=== PATIENT | female | born 1975 | race Caucasian/White ===

== ENCOUNTER 2023-04-08 09:31 | Outpatient (OUT) | payer OTHER, SELFPAY ==
[2023-04-08 09:46] LABS: Bilirubin Urine NEGATIVE (NEGATIVE); Blood Urine SMALL (NEGATIVE); Color Urine YELLOW (YELLOW); Glucose Urine UA NEGATIVE (NEGATIVE); Ketones Urine NEGATIVE (NEGATIVE); Leukocyte Esterase Urine NEGATIVE (NEGATIVE); Nitrite Urine NEGATIVE (NEGATIVE); Protein Urine NEGATIVE (NEG/TRACE); Specific Gravity Urine 1.015 (1.005-1.025); Urine Microscopic Indicated YES
[2023-04-08 09:54] LABS: Clarity Urine SLIGHTLY CLOUDY (CLEAR); WBC Urine NONE SEEN #/HPF (NONE SEEN)
[2023-04-08 09:55] LABS: Bacteria Urine NONE SEEN #/HPF (NONE SEEN); Cast Seen? NONE SEEN #/LPF (NONE SEEN); Crystals Seen? None Seen #/HPF (None Seen); Mucus Urine NONE SEEN (NONE SEEN); RBC Urine 0-2 #/HPF (0-2); Squamous Epithelial Cell Urine MANY #/LPF (NONE/RARE)
== END 2023-04-08 09:32 | disposition home or self-care (01) ==
LOC: LAB 09:34
PROVIDERS: PCP Nurse Practitioner; Visit Provider Nurse Practitioner
DX: N30.00 Acute cystitis without hematuria (principal)
CPT/HCPCS: 81001; 87086

== ENCOUNTER 2023-05-05 11:33 | Emergency (ER) | payer OTHER, SELFPAY ==
[2023-05-05] VITALS (15 sets, daily range): BP systolic 120–137; BP diastolic 75–84; PULSE 72–95; RESP 12–27; TEMP 36.9; O2SAT 97–99; BMI 24.1
--- OUTSIDE RECORDS SUMMARY | 2023-05-05 11:44 | XMS_ITS | CCD ---
Author Name Unknown Address [address] [place] [address] Organization [facility] Care Team Providers Care Hearing Aid Consultant Name Role Phone MAGO ULLOA BRAXTON Admitting Unavailable TROYHTANIYA, MAGO LIMON Attending Unavailable MISC, DR WYATT Primary Care Unavailable AICHTANIYA, MAGO LIMON Consulting Unavailable KARASIK, DR CUELLAR Admitting Unavailable KARASIK, DR CUELLAR Attending Unavailable MISC, DR WYATT Primary Care Unavailable KARASIK, DR CUELLAR Consulting Unavailable Unavailable Primary Care Provider Unavailabl e PROVIDER, UNKNOWN Attending Unavailable PROVIDER, UNKNOWN Admitting Unavailable RADHA MONTAGUE Referring Unava ilable Maribell Knutson Unavailable EVELIO Knutson Attending Provider Maribell Knutson Attending Unavailable Maribell Knutson Admitting Unavailable Ermelinda Morrison Unavailable BRAXTON ULLOA Attending Unavailable Medications Current Medications Medication Drug Class(es) Dates Sig (Normalized) Sig (Original) cephalexin 500 mg oral tablet (2 sources) Cephalosporin Antibacterial Start: 03-29-2023 take 1 tablet by mouth every twelve hours Cephalexin 500 MG 1 tablet Orally every 12 hrs for 7 days Mar, Active nitrofurantoin, macrocrystals 25 mg / nitrofurantoin, monohydrate 75 mg oral capsule (3 sources) Nitrofuran Antibacterial Start: 03-23-2023 take 1 capsule by mouth every twelve hours Macrobid 100 MG 1 cap(s) Orally bid for 5 day(s) Mar, Active phenazopyridine hydrochloride 200 mg oral tablet (3 sources) Start: 03-23-2023 take 1 tablet by mouth every eight hours Pyridium 200 MG 1 tablet after meals Orally Three times a day for 2 day(s) Mar, Active Problems Problem Classification Problem Date Documented Date Episodic/Chronic Genitourinary symptoms and ill-defined conditions (3 sources) Dysuria; Translations: [Dysuria] Onset: 03-23-2023 Episodic Immunizations and screening for infectious disease (1 source) Encounter for screening for human papillomavirus (HPV); Translations: [ENC SCREENING HUMAN PAPILLOMAVIRUS] Onset: 09-19-2021 Episodic Other screening for suspected conditions (not mental disorders or infectious disease) (6 sources) Encounter for screening for malignant neoplasm of cervix; Translations: [Abnormal findings on diagnostic imaging of breast] Onset: 09-16-2021 Episodic Urinary tract infections (2 sources) Acute cystitis with hematuria Episodic Results Test Name Value Interpretation Reference Range Facility Urinalysis - AUTOMATEDon Appearance (U) cloudy [facility] Other Bilirubin Ql (U) Negative [employer] Other Color (U) yellow [employer] Other Glucose Ql (U) Negative [facility] Other Hemoglobin Ql (U) moderate [facility] Other Ketones Ql (U) Negative [facility] Other Leukocyte esterase Test strip Ql (U) trace [employer] Other Nitrite Ql (U) Negative [facility] Other pH (U) 5.5 [pH] [employer] Other Protein Ql (U) 30 [facility] Other Specific gravity (U) [Rel density] >=1.030 [employer] Other Urobilinogen (U) [Mass/Vol] 1.0 mg/dL [employer] Other Urinalysis - AUTOMATED [employer] Other Urine Cultureon 03-23-2023 Bacteria identified Cx Nom (U) ORGANISM: Escherichia coli (O:ESCCOL) Fischer Count 75,000 Aerobic BAMBI Charge (NMIC56) ---- SUSCEPTIBILITY --- ORGANISM: O:ESCCOL ANTIBIOTIC INTERPRETATION [facility]AM[facility] Amikacin S <16 Amoxacillin/K Clavulanate S <8 Ampicillin S <8 Ampicillin/Sulbactam S <4 Aztreonam S <4 Cefazolin S <2 Cefepime S <2 Ceftazidime S <1 Ceftazidime/Avibactam S <4 Ceftolozane/Tazobacta m S <2 Ceftriaxone S <1 Cefuroxime S <4 Ciprofloxacin S <0.25 Ertapenem S <0.5 Gentamicin S <2 Levofloxacin S <0.5 Meropenem S <1 Meropenem/Vaborbactam S <2 Nitrofurantoin S <32 Piperacillin/Tazobact am S <8 Tetracycline S <4 Tigecycline S <2 Tobramycin S <2 Trimethoprim/Sulfamet hoxazole S <0.5 S = SUSCEPTIBLE I = INTERMEDIATE R = RESISTANT BLANK = DATA NOT AVAILABLE, OR DRUG NOT ADVISABLE OR TESTED R* = RESISTANCE DUE TO EXTENDED SPECTRUM BETA-LACTAMASES ESBL = EXTENDED SPECTRUM BETA-LACTAMASE TFG = THYMIDINE-DEPENDENT STRAIN KATELIN = BETA-LACTAMASE POSITIVE IB = INDUCIBLE BETA-LACTAMASE. APPEARS IN PLACE OF 'S' WITH SPECIES KNOWN TO POSSESS INDUCIBLE BETA-LACTAMASES. POTENTIALLY THEY MAY BECOME RESISTANT TO ALL B-LACTAM DRUGS. PERFORMED BY: [place] [address] PATHOLOGIST PLATING EQUIPMENT TENDER ABIGAIL CAMPOVERDE M.D. Normal [facility] Comment on above: Performed By: #### C UU #### [address] Urine Culture 75,000 [employer] Other Urine Culture <16 Susceptible [facility] Other Urine Culture <8/4 Susceptible [facility] Other Urine Culture <8 Susceptible [facility] Other Urine Culture <4 Susceptible [facility] Other Urine Culture <2 Susceptible [facility] Other Urine Culture <1 Susceptible [facility] Other Urine Culture <0.25 Susceptible [facility] Other Urine Culture <0.5 Susceptible [facility] Other Urine Culture <32 Susceptible [facility] Other Urine Culture <0.5/9.5 Susceptible [facility] Other MG MAMMO SCREEN BILAT MAXX W /CADon 12-27-2022 MG MAMMO SCREEN BILAT MAXX W/CAD EXAM: BILATERAL SCREENING MAMMOGRAM W/TOMOSYNTHESIS AND CAD CLINICAL HISTORY: Patient is 47 years old and is seen for screening. The patient has a history of ovarian cancer at age 38. The patient has no family history of breast cancer. COMPARISON: This is a baseline study. TECHNIQUE: The following mammographic views were obtained: bilateral CC, CC with tomosynthesis, MLO and MLO with tomosynthesis. Computer-aided detection was utilized by the radiologist in the interpretation of this examination. MAMMOGRAM FINDINGS: The breast tissue is heterogeneously dense, which may obscure detection of small masses. There is a mass in the upper outer quadrant of the right breast at posterior depth. No suspicious masses, calcifications or other abnormalities are seen in the left breast. IMPRESSION: Mass in the right breast requires additional evaluation. A diagnostic right breast ultrasound exam ([id number]) is recommended. There is no evidence of malignancy in the left breast. BI-RADS Category 0: Incomplete, Needs Additional Imaging Evaluation The Breast Center Coordinator and Navigator will place a reflexive Epic order, contact and schedule the appropriate appointments. RISK ASSESSMENT: Estimated lifetime breast cancer risk: High (more than 20%, as per the Tyrer-Cuzick/AMERICA model) NCI Lifetime Risk Score: 6.3% The patient is noted to be of high risk for breast cancer and may be a candidate for high risk screening. A referral to Breast Clinic is recommended. Breast Clinic Referral Code [id number] Normal [facility] Progress Noteson 12-27-2022 Photo Manager Authentication Interface Message Text Breast imaging reviewed by radiologist. Impression/Recommenda tion: Mass in the right breast requires additional evaluation. A diagnostic right breast ultrasound exam ([id number]) is recommended. Orders placed per radiologist recommendations. Patient will be contacted to schedule appropriate appointments. Katt Galindo RN-BC, HEAD ROSE GROWER, PhD Breast Center Gage Designer Normal [facility] PAP ACOG PANEL 2: 30 to 65on 09-22-2021 . . Normal [facility] Comment on above: Result Comment: Perf ormed at: WB Performed By: #### [id number] #### [facility] [address] [address] [address] Adiel Castillo Age Gdln ACOG Testing 30-65 [facility] Comment on above: Performed By: #### [id number] #### [facility] [address] [address] [address] Adiel Castillo DIAGNOSIS: Comment Normal [facility] Comment on above: Result Comment: NEGA TIVE FOR INTRAEPITHELIAL LESION OR MALIGNANCY. Performed at: WB Performed By: #### [id number] #### [facility] [address] [address] [address] Adiel Castillo HPV Aptima Negative Normal Negative [facility] Comment on above: Result Comment: This nucleic acid amplification test detects fourteen high-risk HPV types (16,18,31,33,35,39,45,51,52,56,58,59,66,68) without differentiation. Performed at: =G Performed By: #### [id number] #### [facility] [address] [address] [address] Adiel Castillo Methodology: Comment Normal [facility] Comment on above: Result Comment: This liquid based ThinPrep(R) pap test was screened with the use of an image guided system. Performed at: WB Performed By: #### [id number] #### [facility] [address] [address] [address] Adiel Castillo Note: Comment Normal [facility] Comment on above: Result Comment: The Pap smear is a screening test designed to aid in the detection of premalignant and malignant conditions of the uterine cervix. It is not a diagnostic procedure and should not be used as the sole means of detecting cervical cancer. Both false-positive and false-negative reports do occur. . Performed at: WB Performed By: #### [id number] #### [facility] [address] [place] [address] Dr. Adiel Castillo Performed by: Comment Normal [facility] Comment on above: Result Comment: Mireya Roland, Bedspread Cutter Hand (ASCP) Performed at: WB Performed By: #### [id number] #### [facility] [address] [place] [address] Dr. Adiel Castillo Specimen adequacy: Comment Normal [facility] Comment on above: Result Comment: Sati sfactory for evaluation. No endocervical component is identified. Performed at: WB Performed By: #### [id number] #### [facility] [address] [place] [address] Dr. Adiel Castillo CBC AUTO DIFFon 08-20-2021 BASO # 0.1 103/ul Normal 0.0-0.1 [facility] Comment on above: Performed By: #### C BC #### [facility] [address] [place] [address] Dr. Adiel Castillo Basophils/100 WBC (Bld) 0.8 % Normal 0.2-2.0 [facility] Comment on above: Performed By: #### C BC #### [facility] [address] [place] [address] Dr. Adiel Castillo EO # 0.1 103/ul Normal 0.0-0.7 [facility] Comment on above: Performed By: #### C BC #### [facility] [address] [place] [address] Dr. Aidel Castillo Eosinophils/100 WBC (Bld) 1.3 % Normal 0.9-7.0 [facility] Comment on above: Performed By: #### C BC #### [facility] [address] [place] [address] Dr. Adiel Castillo Erythrocyte distribution width (RBC) [Ratio] 11.6 % Normal 11.0-15.0 [facility] Comment on above: Performed By: #### C BC #### [facility] [address] [place] [address] Dr. Adiel Castillo Hematocrit (Bld) [Volume fraction] 42.7 % Normal 36.0-48.0 [facility] Comment on above: Performed By: #### C BC #### [facility] [address] [place] [address] Dr. Adiel Castillo Hemoglobin (Bld) [Mass/Vol] 13.9 g/dL Normal 12.0-16.0 [facility] Comment on above: Performed By: #### C BC #### [facility] [address] [place] [address] Dr. Adiel Castillo IG # 0.02 10e3/ul Normal 0.00-0.03 [facility] Comment on above: Performed By: #### C BC #### [facility] [address] [place] [address] Dr. Adiel Castillo IG % 0.3 % Normal 0.0-0.5 [facility] Comment on above: Performed By: #### C BC #### [facility] [address] [place] [address] Dr. Adiel Castillo LYMPH # 2.4 103/ul Normal 1.2-3.8 [facility] Comment on above: Performed By: #### C BC #### [facility] [address] [place] [address] Dr. Adiel Castillo Lymphocytes/100 WBC (Bld) 38.8 % Normal 20.5-60.0 [facility] Comment on above: Performed By: #### C BC #### [facility] [address] [place] [address] Dr. Adiel Castillo MANUAL DIFF REQ NO Normal [facility] Comment on above: Performed By: #### C BC #### [facility] [address] [place] [address] Dr. Adiel Castillo MCH (RBC) [Entitic mass] 30.8 pg Normal 26.7-34.0 [facility] Comment on above: Performed By: #### C BC #### [facility] [address] [address] [address] Adiel Castillo MCHC (RBC) [Mass/Vol] 32.6 g/dL Normal 29.9-35.2 [facility] Comment on above: Performed By: #### C BC #### [facility] [address] [address] [address] Adiel Castillo MCV (RBC) [Entitic vol] 94.7 fL Normal 81.0-99.0 [facility] Comment on above: Performed By: #### C BC #### [facility] [address] [place] [address] Dr. Adiel Castillo MONO # 0.5 103/ul Normal 0.3-0.8 [facility] Comment on above: Performed By: #### C BC #### [facility] [address] [place] [address] Dr. Adiel Castillo Monocytes/100 WBC (Bld) 7.6 % Normal 1.7-12.0 [facility] Comment on above: Performed By: #### C BC #### [facility] [address] [place] [address] Dr. Adiel Castillo NEUT # 3.2 103/ul Normal 1.4-6.5 [facility] Comment on above: Performed By: #### C BC #### [facility] [address] [place] [address] Dr. Adiel Castillo Neutrophils/100 WBC (Bld) 51.2 % Normal 43.0-75.0 [facility] Comment on above: Performed By: #### C BC #### [facility] [address] [address] [address] Adiel Castillo Platelet mean volume (Bld) [Entitic vol] 10.1 fL Normal 9.5-13.5 [facility] Comment on above: Performed By: #### C BC #### [facility] [address] [place] [address] Dr. Adiel Castillo PLT 285 103/ul Normal 150-450 [facility] Comment on above: Performed By: #### C BC #### [facility] [address] [address] [address] Adiel Castillo RBC 4.51 106/ul Normal 4.20-5.40 [facility] Comment on above: Performed By: #### C BC #### [facility] [address] [address] [address] Adiel Castillo WBC 6.2 103/ul Normal 4.0-11.0 [facility] Comment on above: Performed By: #### C BC #### [facility] [address] [address] [address] Adiel Castillo LIPID PROFILEon 08-20-2021 CHOL-HDL RATIO NORM SEE BELOW Normal [facility] Comment on above: Result Comment: 3.3 - 4.4 LOW RISK 4.4 - 7.1 AVERAGE RISK 7.1 - 11.0 MODERATE RISK >11.0 HIGH RISK Performed By: #### L IPID, CMP, TSH #### [facility] [address] [address] [address] Adiel Castillo Cholesterol [Mass/Vol] 162 mg/dL Normal <=200 [facility] Comment on above: Performed By: #### L IPID, CMP, TSH #### [facility] [address] [address] [address] Adiel Castillo Cholesterol in HDL [Mass/Vol] 71 mg/dL Critically high 40-60 [facility] Comment on above: Performed By: #### L IPID, CMP, TSH #### [facility] [address] [address] [address] Adiel Castillo Cholesterol in LDL [Mass/Vol] 85.2 mg/dL Normal [facility] Comment on above: Performed By: #### L IPID, CMP, TSH #### [facility] [address] [address] [address] Adiel Castillo Cholesterol.total/C holesterol in HDL [Mass ratio] 2.3 {ratio} Normal [facility] Comment on above: Performed By: #### L IPID, CMP, TSH #### [facility] [address] [address] [address] Adiel Castillo HDL NORMAL > or = 60 mg/dl - LO W CARDIOVASCULAR RISK <40 mg/dl - HIGH CARDIOVASCULAR RISK Normal [facility] Comment on above: Performed By: #### L IPID, CMP, TSH #### [facility] [address] [address] [address] Adiel Castillo LDL CALC NORMAL SEE BELOW Normal [facility] Comment on above: Result Comment: <100 mg/dl OPTIMAL 100 - 129 mg/dl NEAR OR ABOVE OPTIMAL 130 - 159 mg/dl BORDERLINE HIGH 160 - 189 mg/dl HIGH >190 mg/dl VERY HIGH Performed By: #### L IPID, CMP, TSH #### [facility] [address] [address] [address] Adiel Castillo Triglyceride [Mass/Vol] 29 mg/dL Normal <=150 [facility] Comment on above: Performed By: #### L IPID, CMP, TSH #### [facility] [address] [address] [address] Adiel Castillo VLDL CALC 5.8 mg/dL Normal [facility] Comment on above: Performed By: #### L IPID, CMP, TSH #### [facility] [address] [address] [address] Adiel Castillo PROF 14(COMP METB)on 022 Albumin [Mass/Vol] 3.8 g/dL Normal 3.4-5.0 [facility] Comment on above: Performed By: #### L IPID, CMP, TSH #### [facility] [address] [address] [address] Adiel Castillo Albumin/Globulin [Mass ratio] 1.2 {ratio} Normal [facility] Comment on above: Performed By: #### L IPID, CMP, TSH #### [facility] [address] [address] [address] Adiel Castillo ALP [Catalytic activity/Vol] 51 U/L Normal 46-116 [facility] Comment on above: Performed By: #### L IPID, CMP, TSH #### [facility] [address] [address] [address] Adiel Castillo ALT [Catalytic activity/Vol] 23 U/L Normal 14-59 [facility] Comment on above: Performed By: #### L IPID, CMP, TSH #### [facility] [address] [address] [address] Adiel Castillo Anion gap [Moles/Vol] 5.4 mmol/L Normal [facility] Comment on above: Performed By: #### L IPID, CMP, TSH #### [facility] [address] [address] [address] Adiel Castillo AST [Catalytic activity/Vol] 13 U/L Critically low 15-37 [facility] Comment on above: Performed By: #### L IPID, CMP, TSH #### [facility] [address] [place] [address] Dr. Adiel Castillo Bilirubin [Mass/Vol] 0.4 mg/dL Normal 0.2-1.0 [facility] Comment on above: Performed By: #### L IPID, CMP, TSH #### [facility] [address] [place] [address] Dr. Adiel Castillo Calcium [Mass/Vol] 8.9 mg/dL Normal 8.5-10.1 [facility] Comment on above: Performed By: #### L IPID, CMP, TSH #### [facility] [address] [place] [address] Dr. Adiel Castillo Chloride [Moles/Vol] 104 mmol/L Normal 98-107 [facility] Comment on above: Performed By: #### L IPID, CMP, TSH #### [facility] [address] [place] [address] Dr. Adiel Castillo CO2 [Moles/Vol] 31.7 mmol/L Normal 21.0-32.0 [facility] Comment on above: Performed By: #### L IPID, CMP, TSH #### [facility] [address] [address] [address] Adiel Castillo Creatinine [Mass/Vol] 0.76 mg/dL Normal 0.55-1.02 [facility] Comment on above: Performed By: #### L IPID, CMP, TSH #### [facility] [address] [address] [address] Adiel Castillo EGFR-AF GABONESE >60 Normal >=60 [facility] Comment on above: Performed By: #### L IPID, CMP, TSH #### [facility] [address] [address] [address] Adiel Castillo EGFR-NON AF GABONESE >60 Normal >=60 [facility] Comment on above: Performed By: #### L IPID, CMP, TSH #### [facility] [address] [address] [address] Adiel Castillo Globulin (S) [Mass/Vol] 3.3 g/dL Normal [facility] Comment on above: Performed By: #### L IPID, CMP, TSH #### [facility] [address] [address] [address] Adiel Castillo Glucose [Mass/Vol] 94 mg/dL Normal 74-106 [facility] Comment on above: Performed By: #### L IPID, CMP, TSH #### [facility] [address] [address] [address] Adiel Castillo Potassium [Moles/Vol] 4.1 mmol/L Normal 3.5-5.1 [facility] Comment on above: Performed By: #### L IPID, CMP, TSH #### [facility] [address] [address] [address] Adiel Castillo Protein [Mass/Vol] 7.1 g/dL Normal 6.4-8.2 [facility] Comment on above: Performed By: #### L IPID, CMP, TSH #### [facility] [address] [address] [address] Adiel Castillo Sodium [Moles/Vol] 137 mmol/L Normal 136-145 [facility] Comment on above: Performed By: #### L IPID, CMP, TSH #### [facility] [address] [address] [address] Adiel Castillo Urea nitrogen [Mass/Vol] 16.0 mg/dL Normal 7.0-18.0 [facility] Comment on above: Performed By: #### L IPID, CMP, TSH #### [facility] [address] [address] [address] Adiel Castillo Urea nitrogen/Creatinine [Mass ratio] 21.1 mg/mg Normal [facility] Comment on above: Performed By: #### L IPID, CMP, TSH #### [facility] [address] [address] [address] Adiel Castillo TSHon 08-20-2021 TSH 1.113 uIU/mL Normal 0.358-3.740 [facility] Comment on above: Performed By: #### L IPID, CMP, TSH #### [facility] [address] [place] [address] Dr. Adiel Castillo TSH RANGE SEE BELOW Normal [facility] Comment on above: Result Comment: <0.3 4 UIU/ml HYPERTHYROID 0.34-5.60 UIU/ml EUTHYROID >5.60 UIU/ml HYPOTHYROID Performed By: #### L IPID, CMP, TSH #### [facility] [address] [place] [address] Dr. Adiel Castillo UA RANDOM W/MICROSCOPICon BACTERIA TRACE Abnormal NONE SEEN [facility] Comment on above: Performed By: #### U AMIC #### [facility] [address] [place] [address] Dr. Adiel Castillo Bilirubin Ql (U) Negative Normal NEGATIVE [facility] Comment on above: Performed By: #### U AMIC #### [facility] [address] [place] [address] Dr. Adiel Castillo CAST NONE SEEN Normal NONE SEEN [facility] Comment on above: Performed By: #### U AMIC #### [facility] [address] [place] [address] Dr. Adiel Castillo Clarity (U) CLEAR Normal CLEAR [facility] Comment on above: Performed By: #### U AMIC #### [facility] [address] [place] [address] Dr. Adiel Castillo Color (U) LT. YELLOW Normal YELLOW [facility] Comment on above: Performed By: #### U AMIC #### [facility] [address] [address] [address] Adiel Castillo Crystals LM Nom (Urine sed) NONE SEEN Normal NONE SEEN [facility] Comment on above: Performed By: #### U AMIC #### [facility] [address] [address] [address] Adiel Castillo Epithelial cells LM Ql (Urine sed) FEW Abnormal NONE SEEN /RARE [facility] Comment on above: Performed By: #### U AMIC #### [facility] [address] [address] [address] Adiel Castillo Glucose Ql (U) Negative Normal NEGATIVE [facility] Comment on above: Performed By: #### U AMIC #### [facility] [address] [address] [address] Adiel Castillo Hemoglobin Ql (U) TRACE-INTACT Abnormal NEGATIVE [facility] Comment on above: Performed By: #### U AMIC #### [facility] [address] [address] [address] Adiel Castillo Ketones Ql (U) Negative Normal NEGATIVE [facility] Comment on above: Performed By: #### U AMIC #### [facility] [address] [address] [address] Adiel Castillo LEUKOCYTES Negative Normal NEGATIVE [facility] Comment on above: Performed By: #### U AMIC #### [facility] [address] [address] [address] Adiel Castillo MUCOUS NONE SEEN Normal NONE SEEN [facility] Comment on above: Performed By: #### U AMIC #### [facility] [address] [address] [address] Adiel Castillo Nitrite Ql (U) Negative Normal NEGATIVE [facility] Comment on above: Performed By: #### U AMIC #### [facility] [address] [address] [address] Adiel Castillo pH (U) 7.0 [pH] Normal 5-9 [facility] Comment on above: Performed By: #### U AMIC #### [facility] [facility] [address] [address] [address] Adiel Castillo RBC 0-2 Normal 0-2 [facility] Comment on above: Performed By: #### U AMIC #### [facility] [address] [address] [address] Adiel Castillo SPEC GRAVITY 1.020 Normal 1.005-<=1.025 [facility] Comment on above: Performed By: #### U AMIC #### [facility] [address] [address] [address] Adiel Castillo UA PROTEIN Negative Normal NEGATIVE/ TRACE [facility] Comment on above: Performed By: #### U AMIC #### [facility] [address] [address] [address] Adiel Castillo Urobilinogen Qn (U) 0.2 {Smitha'U}/dL Normal 0.2 - 1. 0 [facility] Comment on above: Performed By: #### U AMIC #### [facility] [address] [place] [address] Dr. Adiel Castillo WBC 0-2 Abnormal NONE SEEN [facility] Comment on above: Performed By: #### U AMIC #### [facility] [address] [place] [address] Dr. Adiel Castillo Vital Signs Date Time Vital Sign Value Performing Clinician Facility 03-23-2023 15:40-0500 Body height 172.72 cm Maribell Knutson Other [employer] [facility] [employer] Other 03-23-2023 15:40-0500 Body mass index (BMI) [Ratio] 30.65 kg/m2 Maribell Knutson Other [employer] Other 03-23-2023 15:40-0500 Body temperature 98.4 [degF] Maribell Knutson Other [employer] Other 03-23-2023 15:40-0500 Body weight 91.45 kg Maribell Knutson Other [employer] Other 03-23-2023 15:40-0500 Diastolic blood pressure 91 mm[Hg] Maribell Knutson Other [employer] Other 03-23-2023 15:40-0500 Respiratory rate 18 /min Maribell Knutson Other [employer] Other 03-23-2023 15:40-0500 SaO2% (BldA) [Mass fraction] 99 % Maribell Knutson Other [employer] Other 03-23-2023 15:40-0500 Systolic blood pressure 160 mm[Hg] Maribell Knutson Other [employer] Other Encounters Encounter Date Encounter Type Care Provider Facility Start: 04-20-2023 End: 04-20-2023 ambulatory BRAXTON ALMARAZTANIYA Not Available Start: 03-29-2023 End: 03-29-2023 ambulatory Ermelinda Morrison Other [employer] Other Start: 03-29-2023 Telephone encounter Ermelinda Morrison [facility] Start: 03-23-2023 End: 03-23-2023 Departed 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 Work Phone: [facility] [place] Work Phone: Start: 03-23-2023 End: 03-23-2023 ambulatory Maribell Knutson [facility] [employer] Other Start: 03-23-2023 Office outpatient ne w 20 minutes Maribell Knutson [facility] Start: 12-27-2022 Orders Only Katt rodriguez RN [facility] Phone[facility] Start: 12-21-2022 ambulatory UNKNOWN PROVIDER [facility] Start: 09-16-2021 End: 09-16-[address] POLO GIBSON Facility:H1 Start: 08-26-2021 Encounter for genera l adult medical examination without abnormal findings MAGO ULLOA [facility] Start: 08-20-2021 End: 08-21-2021 [facility] Start: 08-20-2021 End: 08-21-2021 Encounter for general adult medical examination without abnormal findings MAGO LIMON [facility] Facility:H1 Procedures Date Procedure Procedure Detail Performing Clinician Start: 03-23-2023 Piperacillin/tazobactam Maribell Knutson Other Plan of Treatment Date Care Activity Detail Author Start: 2026 Shingles (RZV) Vacci ne (1 of 2) Shingles (RZV) Vaccine (1 of 2) [facility] Start: 12-22-2023 Screening for malign ant neoplasm of breast [facility]amm[facility] Start: 03-23-2023 Bacteria identified in Urine by Culture [facility] Start: 01-09-2023 Influenza vaccination Influenza Vacc ine (#1) [facility] Start: 12-27-2022 End: 12-28-2023 US Breast - right US BREAST/AXILLA RIGHT Imaging Routine Abnormal finding on breast imaging Expected: 12/27/2022, Expires: 12/28/2023 [facility] Work Phone: Comment on above: Expected: 12/27/2022 , Expires: 12/28/2023 Start: 2021 Cholesterol [Mass/volume] in Serum or Plasma [facility] Start: 2021 Screening for malign ant neoplasm of colon [facility] Start: 1997 Screening for malign ant neoplasm of cervix Pap Smear [facility] Start: 1994 Hepatitis C screening Hepatitis C An tibody [facility] Start: 1994 Tetanus + diphtheria + acellular pertussis vaccine (product) Tdap Booster [facility] Start: 11-10-1991 HIV screening HIV Test [facility] Start: 1976 Screening for malign ant neoplasm of colon Colonoscopy [facility] Payers Date Payer Category Payer Self-pay 2022 Private Health Insurance [facility] UMR [id number] 2022-Present [address] [address] [place] [address] PPO [id number] 2022 Private Health Insurance [id number] 1975 Unknown [id number] 1975 Unknown [id number] 1975 Unknown [id number] 1975 Unknown [id number] 1959 Unknown [id number] Unknown [id number] Social History Date Type Detail Facility Tobacco smoking status [facility] Tobacco [facility] consumption [facility] [place] Start: 1975 Sex Assigned At Not on file [facility] Gender identity Not on file [facility] Start: 1975 Sex Assigned At Female F [facility] Evaluation note 03-23-2023 Note Date & Type Note Facility 03-23-2023 Evaluation note Encounter Date Diagnosis Assessment Notes Mar, Dysuria (ICD-10 - R30.0) Mar, Acute cystitis with hematuria (ICD-10 - N30.01) Drink plenty fluids, get plenty of rest. Take the Macrobid and Pyridium as prescribed until gone. Take Tylenol or Motrin for aches pains and fevers. Follow-up with your family physician if no improvement in 2 to 3 days [employer] Other History of Present illness Narrative 12-27-2022 Katt Galindo, RN - 12/27/2022 4:27 PM EDT Note Date & Type Note Facility 12-27-2022 History of Presen t illness Narrative Breast imaging reviewed by radiologist. Impression/Recommendation: Mass in the right breast requires additional evaluation. A diagnostic right breast ultrasound exam ([id number]) is recommended. Orders placed per radiologist recommendations. Patient will be contacted to schedule appropriate appointments. Katt Galindo RN-, HEAD ROSE GROWER, PhD [facility] [employer]er documented in this encounter [facility] History general Narrative - Reported 08-09-2013 Note Date & Type Note Facility 08-09-2013 History general N arrative - Reported Type Surgical History hysterectomy 08/2013 [place] [facility] Other Evaluation note Note Date & Type Note Facility Evaluation note Diagnosis Abnormal finding on breast imaging- Primary Other (abnormal) findings on radiological examination of breast documented in this encounter [facility] Evaluation note Note Date & Type Note Facility Evaluation note No assessment information [facility] Work Phone: Evaluation note Note Date & Type Note Facility Evaluation note No Information [facility] Other Summary Purpose Family History No Family History Records FoundNo Family History Records FoundNo Family History Records FoundNo Family History Records Found Advance Directives No Advanced Directives Records FoundNo Advanced Directives Records FoundNo Advanced Directives Records FoundNo Advanced Directives Records Found Reason for Referral Specialty Diagnoses / Procedures Referred By Lennox chávez Referred To Contact Radiology Diagnoses Abnormal finding on breast imaging Procedures US BREAST/AXILLA RIGHT Radha Montague DO [address] [place], [place] [id number] [facility] [address] [place] [address] Referral ID Status Reason Start Date Expiration Date V isits Requested Visits Authorized [id number] Authorized 12/27/2022 12/27/2023 1 1 Additional Source Comments INFORMATION SOURCE (unrecogn ized section and content) DATE CREATED AUTHOR 09/22/2021 [facility] DATE CREATED AUTHOR AUTHOR'S ORGANIZ ATION 12/28/2022 [facility] DATE CREATED AUTHOR AUTHOR'S ORGANIZ ATION 03/31/2023 [facility] DATE CREATED AUTHOR AUTHOR'S ORGANIZ ATION 04/22/2023 [facility] EPIC REASON FOR VISIT (unrecogniz ed section and content) POSSIBLE UTIPOSSIBLE UTIClin ical Care Teams (unrecognized sec tion and content) Team Status: Inactive Member Role Status Dates Maribell Knutson NP-C Attending Provider Active Goals (unrecognized section and content) Goals may be documented in a n alternate section FOR RECORDS PERTAINING TO PATIENTS WHO ARE OR HAVE BEEN ENROLLED IN A CHEMICAL DEPENDENCY/SUBSTANCEABUSE PROGRAM, SOME INFORMATION MAY BE OMITTED. This clinical summary was aggregated from multiple sources. Caution should be exercised in using it in the provision of clinical care. This summary normalizes information from multiple sources, and as a consequence, information in this document may materially change the coding, format and clinical context of patient data. In addition, data may be omitted in some cases. CLINICAL DECISIONS SHOULD BE BASED ON THE PRIMARY CLINICAL RECORDS. [facility] [employer] provides no warranty or guarantee of the accuracy or completeness of information in this document.
--- NOTE | 2023-05-05 11:52 | ED.CHESTPAI1 ---
HPI - Chest Pain General Chief Complaint: Chest Pain Stated Complaint: CHEST PAIN Time Seen by Provider: 05/05/23 11:43 Source: patient Mode of arrival: walk-in History of Present Illness HPI narrative: Mid sternal pain in the chest began around 1030am while the patient was standing at work. no recent injury or activity to account for the pain, per patient. no fever or chills. No associated symptoms such as shortness of breath, nausea, cough, fever, chills or vomiting. She took ibuprofen and now the pain is gone . She told me that in Dec or Jan 2021 she got covid and then had to be hospitalized with inflammation around my heart . She said that she saw a machine designer in [place] and got a week long prescription of medicine for that. She does not know the name of the drug but told me that machine designer said it was like Tylenol for your heart . Related Data Home Medications Medication Instructions Recorded Confirmed No Known Home Medications 05/05/23 05/05/23 Allergies Allergy/AdvReac Type Severity Reaction Status Date / Time No Known Drug Allergies Allergy Verified 05/05/23 11:41 Exam Narrative Exam Narrative: Nurses notes and vital signs reviewed and patient is not hypoxic. afebrile General: Well-appearing and in no apparent distress. Skin: Warm, dry, no pallor noted. Eye: Pupils are equal, round and EOMI. No scleral icterus. Cardiovascular: Regular Rate and Rhythm without murmur, gallop or rub. Respiratory: No accessory muscle use or respiratory distress. Lungs are clear to auscultation, no wheezing, rales or rhonchi Chest Wall: no tenderness Musculoskeletal: normal ROM, no calf or popliteal tenderness, no lower extremity edema/swelling Neurological: A&O x4. No cranial nerve dysfunction observed. No truncal ataxia. Moves all extremities. Sensation intact. Psychiatric: Cooperative and interactive. Normal mood and affect. Constitutional Vital Signs, click to edit/add: Last Vital Signs Temp 98.5 F 05/05/23 11:37 Pulse 74 05/05/23 13:40 Resp 15 05/05/23 13:40 BP 131/84 05/05/23 13:30 Pulse Ox 98 05/05/23 13:40 O2 Del Method Room Air 05/05/23 11:37 Course Vital Signs Vital signs: Vital Signs Temperature 98.5 F 05/05/23 11:37 Pulse Rate 95 H 05/05/23 11:37 Respiratory Rate 18 05/05/23 11:37 Blood Pressure 137/84 05/05/23 11:37 Pulse Oximetry 98 05/05/23 11:37 Oxygen Delivery Method Room Air 05/05/23 11:37 Temperature 98.5 F 05/05/23 11:37 Pulse Rate 74 05/05/23 13:40 Respiratory Rate 15 05/05/23 13:40 Blood Pressure 131/84 05/05/23 13:30 Pulse Oximetry 98 05/05/23 13:40 Oxygen Delivery Method Room Air 05/05/23 11:37 MDM - Chest Pain MDM Narrative Medical decision making narrative: Patient was placed on monitoring tech and EKG obtained. Blood drawn and sent for evaluation. CXR obtained. I tried calling both [facility] in [place] and [facility] in [place] but neither could tell me what medication she took in fall 2020. Patient's EKG unremarkable, CXR negative for acute cardiopulmonary abnormality and blood testing also negative. She was informed of results. HEART score is only 1. She was given reassurance and discharged home. She can see her PCP for follow up. ED return if she worsens. Instructed to take ibuprofen again for pain if it recurs. Lab Data Attestation: I reviewed the patient's lab results. Labs: Lab Results 05/05/23 Range/Units 12:00 WBC 9.0 (4.0-11.0) 10^3/uL RBC 4.46 (4.20-5.40) 10^6/uL Hgb 13.6 (12.0-16.0) g/dL Hct 42.3 (36.0-48.0) % MCV 94.8 (81.0-99.0) fL MCH 30.5 (26.7-34.0) pg MCHC 32.2 (29.9-35.2) g/dL RDW 11.9 (11.0-15.0) % Plt Count 351 (150-450) 10^3/uL MPV 9.9 (9.5-13.5) fL Neut % (Auto) 68.3 (43.0-75.0) % Lymph % (Auto) 25.4 (20.5-60.0) % Cooper % (Auto) 5.1 (1.7-12.0) % Eos % (Auto) 0.2 L (0.9-7.0) % Baso % (Auto) 0.8 (0.2-2.0) % Neut # (Auto) 6.1 (1.4-6.5) 10^3/uL Lymph # (Auto) 2.3 (1.2-3.8) 10^3/uL Cooper # (Auto) 0.5 (0.3-0.8) 10^3/uL Eos # (Auto) 0.0 (0.0-0.7) 10^3/uL Baso # (Auto) 0.1 (0.0-0.1) 10^3/uL Abs Immat Gran (auto) 0.02 (0.00-0.03) 10^3/uL Imm/Tot Granulo (auto) 0.2 (0.0-0.5) % Sodium 143 (136-145) mmol/L Potassium 4.0 (3.5-5.1) mmol/L Chloride 105 (98-107) mmol/L Carbon Dioxide 29.3 (21.0-32.0) mmol/L Anion Gap 12.7 BUN 11.0 (7.0-18.0) mg/dL Creatinine 0.83 (0.55-1.02) mg/dL Est GFR ( Amer) >60 (>=60) Est GFR (Non-Af Amer) >60 (>=60) BUN/Creatinine Ratio 13.3 Glucose 99 (74-106) mg/dL Calcium 9.2 (8.5-10.1) mg/dL Troponin I High Sens <4.0 L (4.0-51.3) pg/mL Imaging Data Chest x-ray: Attestation: I have reviewed the pertinent imaging results. Radiologist's impression: ITS Impressions Chest X-Ray 05/05/23 12:22 IMPRESSION: No acute cardiopulmonary process. Electronically authenticated by: DELORES MCLAUGHLIN Date: 05/05/2023 12:54 ECG Data Attestation: I personally reviewed and interpreted this ECG as follows: Interpretation: EKG interpretation: Emergency Department physician interpretation. Normal sinus rhythm at 93bpm. Normal axis, normal intervals and no ST segment elevation or depression. Heart Score History: Slightly/Non-Suspicious ECG: Normal Age: >45-<65 years Risk Factors: No Risk Factors Troponin: <Normal Limit Total Heart Score Recommendations & Risks:: 1 Discharge Plan Discharge Chief Complaint: Chest Pain Clinical Impression: Chest pain Patient Disposition: Home, Self-Care Time of Disposition Decision: 13:28 Mode of Transportation: Private Vehicle Prescriptions / Home Meds: No Action No Known Home Medications Instructions: Chest Pain (ED) Stand Alone Forms: Portal Instructions Referrals: Jessica Schmidt NP [Primary Care Provider] - 1 week Discharge Date/Time: 05/05/23 13:48
--- NOTE | 2023-05-05 12:22 | ECG_ITS ---
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
--- NOTE | 2023-05-05 12:22 | XR_ITS ---
The [address] [address] Patient Name: TOBIAS GREEN MRN: [id number] date: 1975 Sex: F Assigned Patient Location: ER Current Patient Location: ER Accession/Order Number: [id number] Exam Date: 05/05/2023 12:35 Report Date: 05/05/2023 12:54 At the request of: SHAWN BENITES Procedure: XR chest 1V EXAM: XR chest 1V HISTORY: chest pain COMPARISON: None. TECHNIQUE: AP view of the chest. FINDINGS: The cardiomediastinal silhouette is normal. The lungs are clear. There is no pneumothorax. No pleural effusion is noted. The osseous structures are intact. XR/XR chest 1V IMPRESSION: No acute cardiopulmonary process. Electronically authenticated by: DELORES MCLAUGHLIN Date: 05/05/2023 12:54
[2023-05-05 12:30] LABS: Basophils Absolute Auto 0.1 10^3/uL (0.0-0.1); Basophils Percent Auto 0.8 % (0.2-2.0); Eosinophils Percent Auto 0.2 % (0.9-7.0); Hematocrit 42.3 % (36.0-48.0); Hemoglobin 13.6 g/dL (12.0-16.0); Immature Granulocytes Abs Auto 0.02 10^3/uL (0.00-0.03); Immature Granulocytes Pct Auto 0.2 % (0.0-0.5); Lymphocytes Absolute Auto 2.3 10^3/uL (1.2-3.8); Lymphocytes Percent Auto 25.4 % (20.5-60.0); Mean Corpuscular HGB Conc 32.2 g/dL (29.9-35.2); Mean Corpuscular Hemoglobin 30.5 pg (26.7-34.0); Mean Corpuscular Volume 94.8 fL (81.0-99.0); Mean Platelet Volume 9.9 fL (9.5-13.5); Monocytes Absolute Auto 0.5 10^3/uL (0.3-0.8); Monocytes Percent Auto 5.1 % (1.7-12.0); Neutrophils Absolute Auto 6.1 10^3/uL (1.4-6.5); Neutrophils Percent Auto 68.3 % (43.0-75.0); Platelet Count 351 10^3/uL (150-450); Red Blood Count 4.46 10^6/uL (4.20-5.40); Red Cell Distribution Width 11.9 % (11.0-15.0)
[2023-05-05 12:47] LABS: Anion Gap 12.7; BUN Creatinine Ratio 13.3; Calcium 9.2 mg/dL (8.5-10.1); Carbon Dioxide 29.3 mmol/L (21.0-32.0); Chloride 105 mmol/L (98-107); Estimated GFR (African America >60 (>=60); Estimated GFR (Non-African Ame >60 (>=60); Glucose 99 mg/dL (74-106); Sodium 143 mmol/L (136-145); Troponin I High Sensitivity <4.0 pg/mL (4.0-51.3)
== END 2023-05-05 13:48 | disposition home or self-care (01) ==
PROVIDERS: Emergency Provider Emergency Medicine; PCP Nurse Practitioner
DX: R07.9 Chest pain, unspecified (principal); Z86.16 Personal history of COVID-19
CPT/HCPCS: 36415; 71045; 80048; 84484; 85025; 93005; 99285

== ENCOUNTER 2024-06-21 11:24 | Outpatient (OUT) | payer OTHER, SELFPAY | END 2024-06-21 11:25 | disposition home or self-care (01) | LOC: MAMMO 11:24 | PROVIDERS: PCP Nurse Practitioner; Visit Provider Nurse Practitioner | DX: Z12.31 Encounter for screening mammogram for malignant neoplasm of breast (principal) | CPT/HCPCS: 77063; 77067 ==

== ENCOUNTER 2024-06-21 11:48 | Outpatient (OUT) | payer OTHER, SELFPAY ==
--- OUTSIDE RECORDS SUMMARY | 2024-06-21 11:53 | XMS_ITS | CCD ---
Author Organization [facility] Care Team Providers Care Promotions Executive Producer Name Role Phone MAGO SCHMIDT JESSICA Admitting Unavailable AICHTANIYA, MAGO JESSICA Attending Unavailable MISC, DR WYTAT Primary Care Unavailable AICHHOLKeshav, MAGO GAYTANA Consulting Unavailable KARASIK, DR CUELLAR Admitting Unavailable KARASIK, DR CUELLAR Attending Unavailable MISC, DR WYATT Primary Care Unavailable KARASIK, DR CUELLAR Consulting Unavailable Unavailable Primary Care Provider Unavailabl e PROVIDER, UNKNOWN Attending Unavailable PROVIDER, UNKNOWN Admitting Unavailable RADHA MONTAGUE Referring Unava ilable Maribell Knutson Unavailable EVELIO Knutson Attending Provider Maribell Knutson Attending Unavailable Maribell Knutson Admitting Unavailable Ermelinda Morrison Unavailable Radha Montague DO Unavailable [phone] Aicchacorta SWATCH MAKER, Jessica Unavailable Brayan SWATCH MAKER, Jessica Unavailable Enzo Borrero MD Primary Care Provider [phone] JOSH SANTANA Referring Unavailosman e JOSH SANTANA Primary Care Unavailabl e JESSICAHHOLKeshav JESSICA Attending Unavailable AICHHOLZ, JESSICA Attending Unavailable AICHHOLZ, JESSICA Attending Unavailable AICHHOLZ, JESSICA Attending Unavailable AICHHOLZ, JESSICA Attending Unavailable Medications Current Medications Medication Drug Class(es) Dates Sig (Normalized) Sig (Original) amoxicillin 875 mg / clavulanate 125 mg oral tablet (1 source) Penicillin-class Antibacterial Start: 05-08-2024 End: 05-18-2024 take 1 tablet by mouth in the morning amoxicillin-clavulan ate (Augmentin) 875-125 MG tablet Indications: Subacute pansinusitis Take 1 tablet (875 mg) by mouth in the morning and 1 tablet (875 mg) before bedtime. Do all this for 10 days. Take with food. 20 tablet 05/08/2024 05/18/2024 Active cephalexin 500 mg oral tablet (2 sources) [...] Orally bid for 5 day(s) Mar, Active omeprazole 20 mg delayed release oral capsule (2 sources) Proton Pump Inhibitor Start: 05-17-2023 End: 06-16-2023 take 1 capsule by mouth before mealtime omeprazole (PriLOSEC) [address] capsule Indications: Gastroesophageal reflux disease without esophagitis Take 1 capsule (20 mg) by mouth in the morning. Take before meals. Do not crush or chew.. 30 capsule 1 05/17/2023 06/16/2023 Active phenazopyridine hydrochloride 200 mg oral tablet (3 sources) Start: 03-23-2023 take 1 tablet by mouth every eight hours Pyridium 200 MG 1 tablet after meals Orally Three times a day for 2 day(s) Mar, Active predniSONE 10 mg oral tablet (2 sources) Start: 06-21-2024 predniSONE (Deltasone) 10 MG tablet Indications: Plantar fasciitis, left , Inflammatory heel pain, left , Calcaneal spur, left , Gastrocnemius equinus, left , Difficulty walking 1 tablet twice daily x 7 days; followed by 1 tablet daily as directed until complete 21 tablet 06/21/2024 Active Start: 06-21-2024 predniSONE (De ltasone) 10 MG tablet Indications: Plantar fasciitis, left , Inflammatory heel pain, left , Calcaneal spur, left , Gastrocnemius equinus, left , Difficulty walking 1 tablet twice daily x 7 days; followed by 1 tablet daily as directed until complete 21 tablet 06/21/2024 Active Completed/Discontinued Medications Medication Drug Class(es) Dates Sig (Normalized) Sig (Original) azithromycin 250 mg oral tablet (3 sources) Macrolide Antimicrobial Start: 04-21-2023 End: 05-17-2023 azithromycin (Zithromax) 250 MG tablet Indications: Acute non-recurrent maxillary sinusitis 2 pills day #1, 1 pill day #2-#5 6 tablet 0 04/21/2023 05/17/2023 Discontinued (Therapy completed) Problems Active Problems Problem Classification Problem Date Documented Date Episodic/Chronic Esophageal disorders (16 sources) Gastroesophageal reflux disease without esophagitis; Translations: [Gastro-esophageal reflux disease without esophagitis] Onset: 05-17-2023 05-17-2023 Chronic Immunizations and screening for infectious disease (1 source) Encounter for screening for human papillomavirus (HPV); Translations: [ENC SCREENING HUMAN PAPILLOMAVIRUS] Onset: 09-19-2021 Episodic Other connective tissue disease (2 sources) Plantar fasciitis of left foot; Translations: [Plantar fascial fibromatosis] 06-21-2024 Episodic Other connective tissue disease (2 sources) Heel pain; Translations: [Pain in left foot] 06-21-2024 Episodic Other connective tissue disease (2 sources) Calcaneal spur of left foot; Translations: [Calcaneal spur, left foot] 06-21-2024 Episodic Other connective tissue disease (2 sources) Deformity of lower limb; Translations: [Contracture of muscle, left lower leg] 06-21-2024 Episodic Other nervous system disorders (2 sources) Difficulty walking; Translations: [Difficulty in walking, not elsewhere classified] 06-21-2024 Chronic Other nutritional; endocrine; and metabolic disorders (20 sources) Body mass index 30+ - obesity; Translations: [Obesity, unspecified] Onset: 05-17-2023 05-17-2023 Chronic Other screening for suspected conditions (not mental disorders or infectious disease) (20 sources) Encounter for screening for malignant neoplasm of cervix; Translations: [Abnormal findings on diagnostic imaging of breast] Onset: 09-16-2021 Episodic Other upper respiratory infections (12 sources) Acute maxillary sinusitis; Translations: [Acute maxillary sinusitis, unspecified] Onset: 04-20-2023 04-20-2023 Episodic Screening and history of mental health and substance abuse codes (1 source) Encounter for screening for depression; Translations: [Encounter for screening for depression] Onset: 06-16-2023 Episodic Unclassified (1 source) Gynecologic Exam Onset: 06-16-2023 Past or Other Problems Problem Classification Problem Date Documented Date Episodic/Chronic Cancer of ovary (17 sources) Malignant tumor of ovary; Translations: [Personal history of malignant neoplasm of ovary] Onset: 04-18-2023 04-18-2023 Episodic Genitourinary symptoms and ill-defined conditions (18 sources) Dysuria; Translations: [Dysuria] Onset: 03-23-2023 Resolved: 04-20-2023 Episodic Nonspecific chest pain (16 sources) Chest pain; Translations: [Chest pain, unspecified] Onset: 01-20-2021 05-17-2023 Episodic Other non-traumatic joint disorders (13 sources) Pain in right knee; Translations: [Pain in joint, lower leg] Onset: 11-30-2023 11-30-2023 Episodic Other nutritional; endocrine; and metabolic disorders (15 sources) Overweight in adulthood with body mass index of 25 or more but less than 30; Translations: [Body mass index (BMI) 29.0-29.9, adult] Onset: 04-20-2023 Resolved: 04-18-2024 04-20-2023 Episodic Other nutritional; endocrine; and metabolic disorders (12 sources) Overweight; Translations: [Overweight] Onset: 06-22-2023 06-22-2023 Episodic Residual codes; unclassified (15 sources) Patient participation status; Translations: [Other specified health status] Onset: 04-20-2023 04-20-2023 Episodic Residual codes; unclassified (12 sources) Family history of malignant neoplasm of ovary; Translations: [Family history of malignant neoplasm of ovary] Onset: 06-16-2023 06-22-2023 Episodic Urinary tract infections (17 sources) Acute cystitis with hematuria; Translations: [Acute cystitis] Onset: 04-08-2023 Resolved: 04-20-2023 Episodic Results Test Name Value Interpretation Reference Range Facility XR Foot - left 2 [facility] Result: 2 views left foot: Weight-bearing: Lateral and oblique: 06/21/2024: Unremarkable for acute osseous or joint pathology. Unremarkable for fracture, stress fracture, cystic, erosive or lytic changes of the calcaneus. Well-formed enthesophyte at the insertion of the plantar fascia. Subtalar and midtarsal joints are well aligned. Stable medial column. [facility] [employer] [facility] Health[facility] e Radiology Study observation (narrative) [facility] [employer] Urinalysis - AUTOMATEDon Appearance (U) cloudy [facility] Other Bilirubin Ql (U) Negative Attensity Other Color (U) yellow [facility] Other Glucose Ql (U) Negative [facility] Other Hemoglobin Ql (U) moderate Stereomood Other Ketones Ql (U) Negative [facility] Other Leukocyte esterase Test strip Ql (U) trace [facility] Other Nitrite Ql (U) Negative [facility] Other pH (U) 5.5 [pH] [facility] Other Protein Ql (U) 30 [facility] Other Specific gravity (U) [Rel density] >=1.030 [facility] Other Urobilinogen (U) [Mass/Vol] 1.0 mg/dL [facility] Other Urinalysis - AUTOMATED [facility] Other Urine Cultureon 03-23-2023 Bacteria identified Cx Nom (U) ORGANISM: Escherichia coli (O:ESCCOL) Mcdonald Count 75,000 Aerobic BAMBI Charge (NMIC56) ---- [...] RESISTANT TO ALL B-LACTAM DRUGS. PERFORMED BY: [place] [address] PATHOLOGIST DYER HELPER ABIGAIL CAMPOVERDE M.D. [facility] Comment on above: Performed By: #### C UU #### [address] Urine Culture 75,000 [facility] Other Urine Culture <16 Susceptible [facility] Other Urine Culture <8/4 Susceptible [facility] Other Urine Culture <8 Susceptible [facility] Other Urine Culture <4 Susceptible [facility] Other Urine Culture <2 Susceptible [facility] Other Urine Culture <1 Susceptible [facility] Other Urine Culture <0.25 Susceptible [facility] Other Urine Culture <0.5 Susceptible [facility] Other Urine Culture <32 Susceptible [facility] Other Urine Culture <0.5/9.5 Susceptible [facility] Other MG MAMMO SCREEN BILAT MAXX W [...] evaluation. A diagnostic right breast ultrasound exam ([id number]) is recommended. There is no evidence of [...] Clinic is recommended. Breast Clinic Referral Code [id number] Normal [facility] Progress Noteson 12-27-2022 Engineering Programmer Authentication Interface Message Text Breast imaging reviewed by radiologist. Impression/Recommenda tion: Mass in the right breast requires additional evaluation. A diagnostic right breast ultrasound exam ([id number]) is recommended. Orders placed per radiologist recommendations. Patient will be contacted to schedule appropriate appointments. Katt Galindo RN-BC, GRAIN INSPECTOR, PhD [facility] Party Plan Demonstrator Normal [facility] PAP ACOG PANEL 2: 30 to 65on 09-22-2021 . . Normal Comment on above: Result Comment: Perf ormed at: WB Performed By: #### [id number] #### [facility] [address] [address] [address] Adiel Castillo Age Gdln ACOG Testing 30-65 Normal Comment on above: Performed By: #### [id number] #### [facility] [address] [address] [address] Adiel Castillo DIAGNOSIS: Comment Normal Comment on above: Result Comment: NEGA TIVE FOR INTRAEPITHELIAL LESION OR MALIGNANCY. Performed at: WB Performed By: #### [id number] #### [facility] [address] [place] [address] Dr. Adiel Castillo HPV Aptima Negative Normal Negative Comment on above: Result Comment: This nucleic acid amplification test detects fourteen high-risk HPV types (16,18,31,33,35,39,45,51,52,56,58,59,66,68) without differentiation. Performed at: =G Performed By: #### [id number] #### [facility] [address] [place] [address] Dr. Adiel Castillo Methodology: Comment [facility] Comment on above: Result Comment: This liquid based ThinPrep(R) pap test was screened with the use of an image guided system. Performed at: WB Performed By: #### [id number] #### [facility] [address] [place] [address] Dr. Adiel Castillo Note: Comment Normal Comment on above: Result Comment: The Pap smear is a screening test designed to aid in the detection of premalignant and malignant conditions of the uterine cervix. It is not a diagnostic procedure and should not be used as the sole means of detecting cervical cancer. Both false-positive and false-negative reports do occur. . Performed at: WB Performed By: #### [id number] #### [facility] [address] [address] [address] Adiel Castillo Performed by: Comment Normal [facility] Comment on above: Result Comment: Mireya Roland, Landscape Drafter (ASCP) Performed at: WB Performed By: #### [id number] #### [facility] [address] [place] [address] Dr. Adiel Castillo Specimen adequacy: Comment Normal [facility] Comment on above: Result Comment: Sati sfactory for evaluation. No endocervical component is identified. Performed at: WB Performed By: #### [id number] #### [facility] [address] [place] [address] Dr. Adiel Castillo CBC AUTO DIFFon 08-20-2021 BASO # 0.1 103/ul Normal 0.0-0.1 Comment on above: Performed By: #### C BC #### [facility] [address] [place] [address] Dr. Adiel Castillo Basophils/100 WBC (Bld) 0.8 % Normal 0.2-2.0 Comment on above: Performed By: #### C BC #### [facility] [address] [place] [address] Dr. Adiel Castillo EO # 0.1 103/ul Normal 0.0-0.7 Comment on above: Performed By: #### C BC #### [facility] [address] [place] [address] Dr. Adiel Castillo Eosinophils/100 WBC (Bld) 1.3 % Normal 0.9-7.0 Comment on above: Performed By: #### C BC #### [facility] [address] [place] [address] Dr. Adiel Castillo Erythrocyte distribution width (RBC) [Ratio] 11.6 % Normal 11.0-15.0 Comment on above: Performed By: #### C BC #### [facility] [address] [place] [address] Dr. Adiel Castillo Hematocrit (Bld) [Volume fraction] 42.7 % Normal 36.0-48.0 Comment on above: Performed By: #### C BC #### [facility] [address] [address] [address] Adiel Castillo Hemoglobin (Bld) [Mass/Vol] 13.9 g/dL Normal 12.0-16.0 Comment on above: Performed By: #### C BC #### [facility] [address] [place] [address] Dr. Adiel Castillo IG # 0.02 10e3/ul Normal 0.00-0.[address] [facility] Comment on above: Performed By: #### C BC #### [facility] [address] [place] [address] Dr. Adiel Castillo IG % 0.3 % Normal 0.0-0.5 Comment on above: Performed By: #### C BC #### [facility] [address] [place] [address] Dr. Adiel Castillo LYMPH # 2.4 103/ul Normal 1.2-3.[address] [facility] Comment on above: Performed By: #### C BC #### [facility] [address] [place] [address] Dr. Adiel Castillo Lymphocytes/100 WBC (Bld) 38.8 % Normal 20.5-60.0 Comment on above: Performed By: #### C BC #### [facility] [address] [place] [address] Dr. Adiel Castillo MANUAL DIFF REQ NO Normal [facility] Comment on above: Performed By: #### C BC #### [facility] [address] [place] [address] Dr. Adiel Castillo MCH (RBC) [Entitic mass] 30.8 pg Normal 26.7-34.[address] [facility] Comment on above: Performed By: #### C BC #### [facility] [address] [place] [address] Dr. Adiel Castillo MCHC (RBC) [Mass/Vol] 32.6 g/dL Normal 29.9-35.[address] [facility] Comment on above: Performed By: #### C BC #### [facility] [address] [place] [address] Dr. Adiel Castillo MCV (RBC) [Entitic vol] 94.7 fL Normal 81.0-99.0 Comment on above: Performed By: #### C BC #### [facility] [address] [place] [address] Dr. Adiel Castillo MONO # 0.5 103/ul Normal 0.3-0.[address] [facility] Comment on above: Performed By: #### C BC #### [facility] [address] [place] [address] Dr. Adiel Castillo Monocytes/100 WBC (Bld) 7.6 % Normal 1.7-12.[address] [facility] Comment on above: Performed By: #### C BC #### [facility] [address] [place] [address] Dr. Adiel Castillo NEUT # 3.2 103/ul Normal 1.4-6.5 Comment on above: Performed By: #### C BC #### [facility] [address] [place] [address] Dr. Adiel Castillo Neutrophils/100 WBC (Bld) 51.2 % Normal 43.0-75.[address] [facility] Comment on above: Performed By: #### C BC #### [facility] [address] [place] [address] Dr. Adiel Castillo Platelet mean volume (Bld) [Entitic vol] 10.1 fL Normal 9.5-13.[address] [facility] Comment on above: Performed By: #### C BC #### [facility] [address] [place] [address] Dr. Adiel Castillo PLT 285 103/ul Normal 150-[address] [facility] Comment on above: Performed By: #### C BC #### [facility] [address] [place] [address] Dr. Adiel Castillo RBC 4.51 106/ul Normal 4.20-5.[address] [facility] Comment on above: Performed By: #### C BC #### [facility] [address] [place] [address] Dr. Adiel Castillo WBC 6.2 103/ul Normal 4.0-11.0 Comment on above: Performed By: #### C BC #### [facility] [address] [address] [address] Adiel Castillo LIPID PROFILEon 08-20-2021 CHOL-HDL RATIO NORM SEE BELOW Normal [facility] Comment on above: Result Comment: 3.3 - 4.4 LOW RISK 4.4 - 7.1 AVERAGE RISK 7.1 - 11.0 MODERATE RISK >11.0 HIGH RISK Performed By: #### L IPID, CMP, TSH #### [facility] [address] [address] [address] Adiel Castillo Cholesterol [Mass/Vol] 162 mg/dL Normal <=200 Comment on above: Performed By: #### L IPID, CMP, TSH #### [facility] [address] [address] [address] Adiel Castillo Cholesterol in HDL [Mass/Vol] 71 mg/dL Critically high 40-60 Comment on above: Performed By: #### L IPID, CMP, TSH #### [facility] [address] [address] [address] Adiel Castillo Cholesterol in LDL [Mass/Vol] 85.2 mg/dL Normal Comment on above: Performed By: #### L IPID, CMP, TSH #### [facility] [address] [address] [address] Adiel Castillo Cholesterol.total/C holesterol in HDL [Mass ratio] 2.3 {ratio} Normal Comment on above: Performed By: #### L IPID, CMP, TSH #### [facility] [address] [place], [place] [address] Dr. Adiel Castillo HDL NORMAL > or = 60 mg/dl - LO W CARDIOVASCULAR RISK <40 mg/dl - HIGH CARDIOVASCULAR RISK Normal Comment on above: Performed By: #### L IPID, CMP, TSH #### [facility] [address] [id number] Adiel Castillo LDL CALC NORMAL SEE BELOW Normal [facility] Comment on above: Result Comment: <100 mg/dl OPTIMAL 100 - 129 mg/dl NEAR OR ABOVE OPTIMAL 130 - 159 mg/dl BORDERLINE HIGH 160 - 189 mg/dl HIGH >190 mg/dl VERY HIGH Performed By: #### L IPID, CMP, TSH #### [facility] [address] [address] [address] Adiel Castillo Triglyceride [Mass/Vol] 29 mg/dL Normal <=150 Comment on above: Performed By: #### L IPID, CMP, TSH #### [facility] [address] [address] [address] Adiel Castillo VLDL CALC 5.8 mg/dL Normal Comment on above: Performed By: #### L IPID, CMP, TSH #### [facility] [address] [address] [address] Adiel Castillo PROF 14(COMP METB)on 022 Albumin [Mass/Vol] 3.8 g/dL Normal 3.4-5.0 [facility] Comment on above: Performed By: #### L IPID, CMP, TSH #### [facility] [address] [address] [address] Adiel Castillo Albumin/Globulin [Mass ratio] 1.2 {ratio} Normal Comment on above: Performed By: #### L IPID, CMP, TSH #### [facility] [address] [address] [address] Adiel Castillo ALP [Catalytic activity/Vol] 51 U/L Normal 46-[address] [facility] Comment on above: Performed By: #### L IPID, CMP, TSH #### [facility] [address] [address] [address] Adiel Castillo ALT [Catalytic activity/Vol] 23 U/L Normal 14-59 Comment on above: Performed By: #### L IPID, CMP, TSH #### [facility] [address] [address] [address] Adiel Castillo Anion gap [Moles/Vol] 5.4 mmol/L Normal Comment on above: Performed By: #### L IPID, CMP, TSH #### [facility] [address] [address] [address] Adiel Castillo AST [Catalytic activity/Vol] 13 U/L Critically low 15-37 Comment on above: Performed By: #### L IPID, CMP, TSH #### [facility] [address] [address] [address] Adiel Castillo Bilirubin [Mass/Vol] 0.4 mg/dL Normal 0.2-1.0 Comment on above: Performed By: #### L IPID, CMP, TSH #### [facility] [address] [place] [address] Dr. Adiel Castillo Calcium [Mass/Vol] 8.9 mg/dL Normal 8.5-10.1 [facility] Comment on above: Performed By: #### L IPID, CMP, TSH #### [facility] [address] [place] [address] Dr. Adiel Castillo Chloride [Moles/Vol] 104 mmol/L Normal 98-[address] [facility] Comment on above: Performed By: #### L IPID, CMP, TSH #### [facility] [address] [place] [address] Dr. Adiel Castillo CO2 [Moles/Vol] 31.7 mmol/L Normal 21.0-32.0 [facility] Comment on above: Performed By: #### L IPID, CMP, TSH #### [facility] [address] [place] [address] Dr. Adiel Castillo Creatinine [Mass/Vol] 0.76 mg/dL Normal 0.55-1.[address] [facility] Comment on above: Performed By: #### L IPID, CMP, TSH #### [facility] [address] [place] [address] Dr. Adiel Castillo EGFR-AF SURINAMESE >60 Normal >=60 [facility] Comment on above: Performed By: #### L IPID, CMP, TSH #### [facility] [address] [place] [address] Dr. Adiel Castillo EGFR-NON AF SURINAMESE >60 Normal >=[address] [facility] Comment on above: Performed By: #### L IPID, CMP, TSH #### [facility] [address] [address] [address] Adiel Castillo Globulin (S) [Mass/Vol] 3.3 g/dL Normal Comment on above: Performed By: #### L IPID, CMP, TSH #### [facility] [address] [address] [address] Adiel Castillo Glucose [Mass/Vol] 94 mg/dL Normal 74-106 [facility] Comment on above: Performed By: #### L IPID, CMP, TSH #### [facility] [address] [address] [address] Adiel Castillo Potassium [Moles/Vol] 4.1 mmol/L Normal 3.5-5.[address] [facility] Comment on above: Performed By: #### L IPID, CMP, TSH #### [facility] [address] [address] [address] Adiel Castillo Protein [Mass/Vol] 7.1 g/dL Normal 6.4-8.2 [facility] Comment on above: Performed By: #### L IPID, CMP, TSH #### [facility] [address] [address] [address] Adiel Castillo Sodium [Moles/Vol] 137 mmol/L Normal 136-145 [facility] Comment on above: Performed By: #### L IPID, CMP, TSH #### [facility] [address] [address] [address] Adiel Castillo Urea nitrogen [Mass/Vol] 16.0 mg/dL Normal 7.0-18.0 Comment on above: Performed By: #### L IPID, CMP, TSH #### [facility] [address] [address] [address] Adiel Castillo Urea nitrogen/Creatinine [Mass ratio] 21.1 mg/mg Normal Comment on above: Performed By: #### L IPID, CMP, TSH #### [facility] [address] [place] [address] Dr. Adiel Castillo TSHon 08-20-2021 TSH 1.113 uIU/mL Normal 0.358-3.740 [facility] Comment on above: Performed By: #### L IPID, CMP, TSH #### [facility] [address] [place] [address] Dr. Adiel Castillo TSH RANGE SEE BELOW Normal Comment on above: Result Comment: <0.3 4 UIU/ml HYPERTHYROID 0.34-5.60 UIU/ml EUTHYROID >5.60 UIU/ml HYPOTHYROID Performed By: #### L IPID, CMP, TSH #### [facility] [address] [place] [address] Dr. Adiel Castillo UA RANDOM W/MICROSCOPICon BACTERIA TRACE Abnormal NONE SEEN Comment on above: Performed By: #### U AMIC #### [facility] [address] [place] [address] Dr. Adiel Castillo Bilirubin Ql (U) Negative Normal NEGATIVE [facility] Comment on above: Performed By: #### U AMIC #### [facility] [address] [place] [address] Dr. Adiel Castillo CAST NONE SEEN Normal NONE SEEN Comment on above: Performed By: #### U AMIC #### [facility] [address] [place] [address] Dr. Adiel Castillo Clarity (U) CLEAR Normal CLEAR [facility] Comment on above: Performed By: #### U AMIC #### [facility] [address] [place] [address] Dr. Adiel Castillo Color (U) LT. YELLOW Normal YELLOW [facility] Comment on above: Performed By: #### U AMIC #### [facility] [address] [place] [address] Dr. Adiel Castillo Crystals LM Nom (Urine sed) NONE SEEN Normal NONE SEEN Comment on above: Performed By: #### U AMIC #### [facility] [address] [place] [address] Dr. Adiel Castillo Epithelial cells LM Ql (Urine sed) FEW Abnormal NONE SEEN /RARE [facility] Comment on above: Performed By: #### U AMIC #### [facility] [address] [address] [address] Adiel Castillo Glucose Ql (U) Negative Normal NEGATIVE [facility] Comment on above: Performed By: #### U AMIC #### [facility] [address] [address] [address] Adiel Castillo Hemoglobin Ql (U) TRACE-INTACT Abnormal NEGATIVE [facility] Comment on above: Performed By: #### U AMIC #### [facility] [address] [address] [address] Adiel Castillo Ketones Ql (U) Negative Normal NEGATIVE [facility] Comment on above: Performed By: #### U AMIC #### [facility] [address] [place] [address] Dr. Adiel Castillo LEUKOCYTES Negative Normal NEGATIVE Comment on above: Performed By: #### U AMIC #### [facility] [address] [address] [address] Adiel Castillo MUCOUS NONE SEEN Normal NONE SEEN Comment on above: Performed By: #### U AMIC #### [facility] [address] [place] [address] Dr. Adiel Castillo Nitrite Ql (U) Negative Normal NEGATIVE [facility] Comment on above: Performed By: #### U AMIC #### [facility] [address] [address] [address] Adiel Castillo pH (U) 7.0 [pH] Normal 5-9 Comment on above: Performed By: #### U AMIC #### [facility] [address] [place] [address] Dr. Adiel Castillo RBC 0-2 Normal 0-2 Comment on above: Performed By: #### U AMIC #### [facility] [address] [place] [address] Dr. Adiel Castillo SPEC GRAVITY 1.020 Normal 1.005-<=1.025 [facility] Comment on above: Performed By: #### U AMIC #### [facility] [address] [address] [address] Adiel Castillo UA PROTEIN Negative Normal NEGATIVE/ TRACE [facility] Comment on above: Performed By: #### U AMIC #### [facility] [address] [address] [address] Adiel Castillo Urobilinogen Qn (U) 0.2 {Smitha'U}/dL Normal 0.2 - 1. 0 Comment on above: Performed By: #### U AMIC #### [facility] [address] [address] [address] Adiel Castillo WBC 0-2 Abnormal NONE SEEN [facility] Comment on above: Performed By: #### U AMIC #### [facility] [address] [address] [address] Adiel Castillo Vital Signs Date Time Vital Sign Value Performing Clinician Facility 06-21-2024 08:41-0400 Body height 172.7 cm Darin Aldana DPM Work Phone: [facility] 06-21-2024 08:41-0400 Body mass index (BMI) [Ratio] 25.09 kg/m2 Darin Aldana DPM Work Phone: [facility] 06-21-2024 08:41-0400 Body weight 74.84 kg Darin Aldana DPM Work Phone: [facility] 04-18-2024 15:08-0500 Body height 172.7 cm Jessica Schmidt SWATCH MAKER Work Phone: [facility] 04-18-2024 15:08-0500 Body mass index (BMI) [Ratio] 30.08 kg/m2 Jessica Schmidt SWATCH MAKER Work Phone: [facility] 04-18-2024 15:08-0500 Body temperature 98.49 [degF] Jessica Schmidt SWATCH MAKER Work Phone: [facility] 04-18-2024 15:08-0500 Body weight 89.72 kg Jessica Eligioholz SWATCH MAKER Work Phone: [facility] 04-18-2024 15:08-0500 Diastolic blood pressure 78 mm[Hg] Jessica Aichholz SWATCH MAKER Work Phone: [facility] 04-18-2024 15:08-0500 Heart rate 97 /min Jessica Aichholz SWATCH MAKER Work Phone: [facility] 04-18-2024 15:08-0500 Respiratory rate 18 /min Jessica Aichholz SWATCH MAKER Work Phone: [facility] 04-18-2024 15:08-0500 SaO2% (BldA) [Mass fraction] 99 % Jessica Jessicahholz SWATCH MAKER Work Phone: [facility] 04-18-2024 15:08-0500 Systolic blood pressure 124 mm[Hg] Jessica Aichholz SWATCH MAKER Work Phone: [facility] 11-30-2023 15:39-0400 Body mass index (BMI) [Ratio] 30.01 kg/m2 Jessica Jessicahholz SWATCH MAKER Work Phone: [facility] 11-30-2023 15:39-0400 Body temperature 98.4 [degF] Jessica Jessicahholz SWATCH MAKER Work Phone: [facility] 11-30-2023 15:39-0400 Body weight 89.54 kg Jessica Jessicahholz SWATCH MAKER Work Phone: [facility] 11-30-2023 15:39-0400 Diastolic blood pressure 86 mm[Hg] Jessica Aichholz SWATCH MAKER Work Phone: [facility] 11-30-2023 15:39-0400 Heart rate 82 /min Jessica Aichholz SWATCH MAKER Work Phone: [facility] 11-30-2023 15:39-0400 SaO2% (BldA) [Mass fraction] 100 % Jessica Aichholz SWATCH MAKER Work Phone: [facility] 11-30-2023 15:39-0400 Systolic blood pressure 118 mm[Hg] Jessica Mirzaz SWATCH MAKER Work Phone: [facility] 05-17-2023 15:36-0500 Body height 172.7 cm Jessicaaimee Del Valleholz SWATCH MAKER Work Phone: [facility] 05-17-2023 15:36-0500 Body mass index (BMI) [Ratio] 30.9 kg/m2 Jessica Eligioholz SWATCH MAKER Work Phone: [facility] 05-17-2023 15:36-0500 Body temperature 97.81 [degF] Jessica Eligioholz SWATCH MAKER Work Phone: [facility] 05-17-2023 15:36-0500 Body weight 92.17 kg Jessica Eligioholz SWATCH MAKER Work Phone: [facility] 05-17-2023 15:36-0500 Diastolic blood pressure 88 mm[Hg] Jessica Eligioholz SWATCH MAKER Work Phone: [facility] 05-17-2023 15:36-0500 Heart rate 77 /min Jessica Jessicahholz SWATCH MAKER Work Phone: [facility] 05-17-2023 15:36-0500 Respiratory rate 18 /min Jessica Eligioholz SWATCH MAKER Work Phone: [facility] 05-17-2023 15:36-0500 SaO2% (BldA) [Mass fraction] 98 % Jessica Eligioholz SWATCH MAKER Work Phone: [facility] 05-17-2023 15:36-0500 Systolic blood pressure 138 mm[Hg] Jessica Jessicahholz SWATCH MAKER Work Phone: [facility] 03-23-2023 15:40-0500 Body height 172.72 cm Maribell Knutson Other [facility] Other 03-23-2023 15:40-0500 Body mass index (BMI) [Ratio] 30.65 kg/m2 Maribell Knutson Other [employer] Other 03-23-2023 15:40-0500 Body temperature 98.4 [degF] Maribell Knutson Other [facility] Other 03-23-2023 15:40-0500 Body weight 91.45 kg Maribell Knutson Other [employer] Other 03-23-2023 15:40-0500 Diastolic blood pressure 91 mm[Hg] Maribell Knutson Other [employer] Other 03-23-2023 15:40-0500 Respiratory rate 18 /min Maribell Knutson Other [employer] Other 03-23-2023 15:40-0500 SaO2% (BldA) [Mass fraction] 99 % Maribell Knutson Other [employer] Other 03-23-2023 15:40-0500 Systolic blood pressure 160 mm[Hg] Maribell Knutson Other [employer] Other Encounters Encounter Date Encounter Type Care Provider Facility Start: 06-21-2024 End: 06-21-2024 Office outpatient new 45 minutes Darin Aldana DPM Work Phone: [facility] Comment on above: Plantar fasciitis, l eft (Primary Dx); Inflammatory heel pain, left; Calcaneal spur, left; Gastrocnemius equinus, left; Difficulty walking Start: 05-08-2024 End: 05-08-2024 Refill Jessica Schmidt SWATCH MAKER Work Phone: [facility] Comment on above: Subacute pansinusiti s (Primary Dx) Start: 04-25-2024 End: 04-25-2024 Orders Only Jessica Schmidt SWATCH MAKER Work Phone: [facility] Comment on above: Abnormal mammogram o f right breast (Primary Dx) Start: 04-19-2024 End: 04-19-2024 Orders Only Jessica Schmidt SWATCH MAKER Work Phone: [facility] Comment on above: Colon cancer screeni ng (Primary Dx) Start: 04-18-2024 End: 04-18-2024 Periodic preventive med est patient 40-64yrs Jessica Schmidt SWATCH MAKER Work Phone: [facility] Comment on above: Encounter for wellne ss examination (Primary Dx); Obesity (BMI 30-39.9); Colon cancer screening; Encounter for screening mammogram for malignant neoplasm of breast; Ovarian cancer in remission; Subacute pansinusitis Start: 04-18-2024 End: 04-18-2024 ambulatory JESSICA SCHMIDT Not Available Start: 04-18-2024 End: 04-18-2024 Bamboo flowsheet Jessica Schmidt SWATCH MAKER Work Phone: [facility] Start: 04-18-2024 End: 04-18-2024 Bamboo flowsheet Jessica Schmidt SWATCH MAKER Work Phone: [facility] Start: 04-18-2024 End: 04-18-2024 Patient encounter status Jessica Schmidt SWATCH MAKER Work Phone: [facility] Start: 04-18-2024 End: 04-18-2024 Telephone encounter Jessica Schmidt SWATCH MAKER Work Phone: [facility] Start: 11-30-2023 End: 11-30-2023 Office outpatient visit 15 minutes Jessica Schmidt SWATCH MAKER Work Phone: [facility] Comment on above: Acute pain of right knee (Primary Dx); Obesity (BMI 30-39.9) Start: 11-30-2023 End: 11-30-2023 ambulatory JESSICA SCHMIDT Not Available Start: 11-30-2023 End: 11-30-2023 Bamboo flowsheet Jessica Aichholz SWATCH MAKER Work Phone: [facility] Start: 11-30-2023 End: 11-30-2023 Bamboo flowsheet Jessica Eligioholz SWATCH MAKER Work Phone: [facility] Start: 09-28-2023 End: 09-28-2023 ambulatory JESSICA AICHHOLZ Not Available Start: 06-22-2023 End: 06-22-2023 ambulatory JESSICA AICHHOLZ Not Available Start: 06-16-2023 End: 06-16-2023 ambulatory [facility] Start: 06-16-2023 Encounter for gynecological examination (general) (routine) without abnormal findings [facility] Start: 05-17-2023 End: 05-17-2023 Office outpatient visit 15 minutes Jessica Jessicajordonjustynz SWATCH MAKER Work Phone: [facility] Comment on above: Chest pain, unspecif ied type (Primary Dx); Gastroesophageal reflux disease without esophagitis; Obesity (BMI 30-39.9) Start: 05-17-2023 End: 05-17-2023 ambulatory JESSICA AICHHOLZ Not Available Start: 05-17-2023 Bamboo flowsheet Jessica Aichholz SWATCH MAKER Work Phone: [facility] Start: 05-17-2023 Bamboo flowsheet Jessica Aichholz SWATCH MAKER Work Phone: [facility] Start: 05-15-2023 Letter encounter Radha damon DO Work Phone: [facility] Start: 03-29-2023 End: 03-29-2023 ambulatory Ermelinda Morrison Other [employer] Other Start: 03-29-2023 Telephone encounter Ermelinda Morrison [facility] Start: 03-23-2023 End: 03-23-2023 Departed Referred SWATCH MAKER-C Maribell Knutson Work Phone: [facility] [place] Work Phone: Start: 03-23-2023 End: 03-23-2023 ambulatory Maribell Matamond [facility] [employer] Other Start: 03-23-2023 Office outpatient ne w 20 minutes Maribell Knutson [facility] Start: 12-27-2022 Orders Only Katt SmithJules Larry michael RN Work Phone: [facility] Start: 12-21-2022 ambulatory UNKNOWN PROVIDER Facili ty:[facility] Start: 09-16-2021 End: 09-16-[address] POLO GIBSON Facility:[facility] Start: 08-26-2021 Encounter for genera l adult medical examination without abnormal findings MAGO SCHMIDT Start: 08-20-2021 End: 08-21-2021 ambulatory MAGO SCHMIDT Facility:[facility] Start: 08-20-2021 End: 08-21-2021 Encounter for general adult medical examination without abnormal findings [facility] JESSICA SIMMONSTANIYA Facility:[facility] Procedures Date Procedure Procedure Detail Performing Clinician Start: 06-21-2024 Radiologic examinati on foot 2 views Darin GALEANAM Work Phone: Start: 03-23-2023 Piperacillin/tazobactam Maribell Knutson Other Start: 12-21-2022 Mammography Jessica oh NP Work Phone: Start: 10-06-2021 Microscopic observat ion [Identifier] in Cervix by Cyto stain Jessica Schmidt SWATCH MAKER Work Phone: Plan of Treatment Date Care Activity Detail Author Start: 2026 Shingles (RZV) Vacci ne (1 of 2) Shingles (RZV) Vaccine (1 of 2) [facility] Start: 04-22-2025 End: 04-22-2025 Patient encounter procedure 04/22/2025 3:00 PM EST Office Visit [facility] [address] [place] [address] Jessica Schmidt NP [address] [place] [address] [facility] Start: 10-06-2024 Screening for malign ant neoplasm of cervix [facility] Start: 07-18-2024 End: 07-18-2024 Patient encounter procedure 07/18/2024 3:15 PM EDT Office Visit [facility] [address] [place] [phone] Darin Aldana DPM [address] [place], [place] [id number] [facility] Start: 06-21-2024 End: 06-21-2024 Professional / ancillary services management 06/21/2024 9:30 AM EDT Ancillary Procedure [facility] [address] [facility] [place] [address] Arrived [facility] Comment on above: Arrived Start: 04-25-2024 End: 06-23-2025 DBT Breast - bilateral diagnostic Bilateral diagnostic mammogram with tomosynthesis Imaging Routine Abnormal mammogram of right breast Expected: 04/25/2024, Expires: 06/23/2025 [facility] Work Phone: Comment on above: Expected: 04/25/2024 , Expires: 06/23/2025 Start: 04-25-2024 End: 06-23-2025 US Breast - right Right breast US complete Imaging Routine Abnormal mammogram of right breast Expected: 04/25/2024, Expires: 06/23/2025 [facility] Comment on above: Expected: 04/25/2024 , Expires: 06/23/2025 Start: 04-19-2024 End: 04-19-2025 Noninvasive colorectal cancer DNA and occult blood screening [Presence] in Stool Cologuard colon cancer screening Lab Routine Colon cancer screening Expected: 04/19/2024 (Approximate), Expires: 04/19/2025 [facility] Work Phone: Comment on above: Expected: 04/19/2024 (Approximate), Expires: 04/19/2025 Start: 04-18-2024 End: 04-18-2024 Patient encounter procedure [facility] Comment on above: Obesity (BMI 30-39.9 ) (Primary Dx); Encounter for wellness examination; Colon cancer screening; Encounter for screening mammogram for malignant neoplasm of breast Start: 04-18-2024 End: 04-18-2025 CBC W Auto Differential panel - Blood CBC and differential Lab Routine Encounter for wellness examination Expected: 04/18/2024 (Approximate), Expires: 04/18/2025 [facility] Work Phone: Comment on above: Expected: 04/18/2024 (Approximate), Expires: 04/18/2025 Start: 04-18-2024 End: 04-18-2025 Comprehensive metabolic 2000 panel - Serum or Plasma Comprehensive metabolic panel Lab Routine Encounter for wellness examination Expected: 04/18/2024 (Approximate), Expires: 04/18/2025 [facility] Comment on above: Expected: 04/18/2024 (Approximate), Expires: 04/18/2025 Start: 04-18-2024 End: 04-18-2025 Lipid 1996 panel - Serum or Plasma Lipid panel Lab Routine Encounter for wellness examination Expected: 04/18/2024 (Approximate), Expires: 04/18/2025 [facility] Comment on above: Expected: 04/18/2024 (Approximate), Expires: 04/18/2025 Start: 04-18-2024 End: 06-16-2025 MG Breast - bilateral Screening Bilateral screening mammogram Imaging Routine Encounter for screening mammogram for malignant neoplasm of breast Expected: 04/18/2024 (Approximate), Expires: 06/16/2025 [facility] Comment on above: Expected: 04/18/2024 (Approximate), Expires: 06/16/2025 Start: 04-18-2024 End: 04-18-2025 Thyrotropin [Units/volume] in Serum or Plasma TSH Lab Routine Encounter for wellness examination Expected: 04/18/2024 (Approximate), Expires: 04/18/2025 [facility] Comment on above: Expected: 04/18/2024 (Approximate), Expires: 04/18/2025 Start: 04-18-2024 End: 04-18-2025 Urinalysis complete panel - Urine Urinalysis with reflex microscopic (clean catch) Lab Routine Encounter for wellness examination Expected: 04/18/2024 (Approximate), Expires: 04/18/2025 [facility] Comment on above: Expected: 04/18/2024 (Approximate), Expires: 04/18/2025 Start: 12-22-2023 Screening for malign ant neoplasm of [facility] Start: 11-30-2023 End: 11-30-2023 Patient encounter procedure 11/30/2023 3:20 PM EDT Office Visit [facility] [address] [place] [address] Jessica Schmidt, RADHA [address] [place] [phone] Arrived [facility] Comment on above: Arrived Start: 06-15-2023 End: 06-15-2023 Patient encounter procedure 06/15/2023 3:40 PM EST Office Visit [facility] [address] [place] [address] Jessica Schmidt, SWATCH MAKER [address] [place] [phone] [facility] Start: 05-17-2023 End: 05-17-2023 Patient encounter procedure 05/17/2023 3:20 PM EST Office Visit [facility] [address] [place] [address] Jessica Schmidt, SWATCH MAKER [address] [place] [phone] Arrived [facility] Comment on above: Arrived Start: 03-23-2023 Bacteria identified in Urine by Culture [facility] Start: 01-09-2023 Influenza vaccination Influenza Vacc ine (#1) [facility] Start: 12-27-2022 End: 12-28-2023 US Breast - right US BREAST/AXILLA RIGHT Imaging Routine Abnormal finding on breast imaging Expected: 12/27/2022, Expires: 12/28/2023 [facility] Work Phone: Comment on above: Expected: 12/27/2022 , Expires: 12/28/2023 Start: 12-10-2022 Influenza vaccination Influenza Vacc ine [facility] Start: 2021 Cholesterol [Mass/volume] in Serum or Plasma Cholesterol [facility] Start: 2021 Screening for malign ant neoplasm of [facility] Start: 2006 Screening for malign ant neoplasm of cervix HPV/Cotest [facility] Start: 1997 Screening for malign ant neoplasm of cervix Pap Smear [facility] Start: 1994 Hepatitis C screening Hepatitis C An tibody [facility] Start: 1994 Tetanus + diphtheria + acellular pertussis vaccine (product) Tdap Booster [facility] Start: 11-10-1991 HIV screening HIV Test [facility] Start: 05-12-1977 COVID-19 Vaccine (#1) COVID-19 Vacci ne (#1) [facility] Start: 1976 Hepatitis B vaccination Hepati tis B (HBV) Vaccine (1 of 3 - 3-dose series) [facility] Start: 1976 Screening for malign ant neoplasm of colon [facility] Payers Date Payer Category Payer Unknown [employer] [id number] 2023-Present [phone] [address] [address] [place] [address] [id number] 2023 Self-pay 2022 Private Health Insurance [id number] 2022 Private Health Insurance [id number] 1976 Unknown [id number] [id number] 1976 Unknown [id number] [id number] 1976 Unknown [id number] [id number] 1976 Unknown [id number] [id number] 1976 Unknown [id number] [id number] 1976 Unknown [id number] [id number] 1976 Unknown [id number] [id number] 1976 Unknown [id number]. 2.9 1976 Unknown [id number] [id number] 1959 Unknown [id number] Unknown [id number] [id number] Social History Date Type Detail Facility Tobacco smoking stat [facility] Tobacco smoking consumption unknown [facility] Start: 1975 Sex Assigned At Not on file [facility] Start: 04-20-2023 End: 09-28-2023 Gender identity Not on file [facility] Start: 1975 Sex Assigned At Female [facility] Start: 04-18-2023 Tobacco smoking status WYIS Never smoked tobacco [facility] Start: 04-18-2023 Tobacco use and exposure Smokeless tobacco non-user [facility] Start: 05-09-2023 End: 06-21-2024 Alcohol intake Ex-drinker (finding) [facility] Start: 04-20-2023 End: 09-28-2023 History of Social function [facility] Within the last year , have you been afraid of your partner or ex-partner? No [facility] Do you belong to any clubs or organizations such as yarsanism groups, unions, fraternal or athletic groups, or school groups? Yes [facility] Are you now , , , , never or living with a partner? [facility] How often to you hav e a drink containing alcohol? 2-4 times a month [facility] How many standard dr inks containing alcohol do you have on a typical day? 1 or 2 [facility] How often do you hav e 6 or more drinks on 1 occasion? Never [facility] How hard is it for y ou to pay for the very basics like food, housing, medical care, and heating Not very hard [facility] Do you feel stress - tense, restless, nervous, or anxious, or unable to sleep at night because your mind is troubled all the time - these days [OSQ] To some extent [facility] (I/We) worried wheth er (my/our) food would run out before (I/we) got money to buy more. Never true [facility] In the past 12 month s, has lack of transportation kept you from medical appointments or from getting medications? No [facility] Start: 04-19-2023 Alcohol Comment occasional [facility] Clinical Notes 08-09-2013 to 06-21-2024 Darin Aldana, GEOVANNI - 06/21/2024 8:45 AM EDTPatient InstructionsJessica Schmidt NP - 04/25/2024 10:46 AM ESTTelephone Encounter - Jessica Schmidt NP - 04/18/2024 3:49 PM ESTPatient Instructions Note Date & Type Note Facility 06-21-2024 History of Presen t illness Narrative Images from the original note were not included. Subjective Patient ID: Aria Fernandez is a 48 y.o. female who presents for Foot Pain (Aria Fernandez 48yo New Patient presents with Left heel pain, started 3 weeks ago, NKI. Xochitl as need. SS 9). HPI Initial patient encounter and assessment. Chief complaint: Left heel pain. Insidious onset without known injury or precipitating trauma. Denies pop or snap sensation. Gradual progressive pain over the past several weeks or so. Identifies the inferior heel and in-step area; sharp pain, typical of 1st step pain and post static dyskinesia. Also notes deep discomfort with prolonged weight-bearing activity, particularly work activity. Denies swelling, discoloration, dysesthesias or radicular pain. First such episode of this nature. Symptoms unresponsive to ibuprofen and OTC insoles. Right foot is symptom free. Medications No current outpatient medications on file. Allergies Patient has no known allergies. Past Surgical History Past Surgical History: Procedure Laterality Date DILATION AND CURETTAGE Miscarriage HYSTERECTOMY Complete - due to cancer OTHER SURGICAL HISTORY 08/08/2021 Laser Surgery TUBAL LIGATION Family History Family History Problem Relation Name Age of Onset Asthma Mother Cancer Mother Diabetes Mother Atrial fibrillation Mother Emphysema Mother Asthma Sister Cancer Maternal Grandmother Cancer Maternal Grandfather Cancer Paternal Grandmother Objective General assessment: AlertAnd oriented. Pleasant disposition. Wearing slip-on steel toe footwear. Vascular: DP 2/4 bilateral. PT 2/4 bilateral. CFT brisk all digits. Gradient temperature: Warm-warm bilateral. Unremarkable for ankle edema. Neurologic: Tactile and light touch sensation intact. Negative Tinel's along the tarsal canal. Dermatologic: Skin turgor is good. Unremarkable for eczema or dermatitis. Web space areas are clean, dry, non-inflamed. Orthopedic: Range of motion: PassiveAnkle dorsiflexion is limited, consistent with mild gastrocnemius equinus. Otherwise demonstrates functional ankle, subtalar and 1st MTP joint range of motion. Stance assessment: Symmetrical, rectus alignment. Stable medial column. Lesion pattern: No forefoot or digital discrete keratotic lesions are noted. Focused exam left foot and ankle: Acute/sharp point tenderness medial calcaneal tubercle/medial fascial insertion; without swelling, warmth, discoloration or nodular formation. Lateral squeeze of the calcaneus non-tender. Posterior joint line and Achilles tendon construct non-tender. Midfoot and forefoot structures non-tender. Focused exam right foot and ankle: Unremarkable for point tenderness. Radiology: RADIOGRAPHS: 2 views left foot: Weight-bearing: Lateral and oblique: 06/21/2024: Unremarkable for acute osseous or joint pathology. Unremarkable for fracture, stress fracture, cystic, erosive or lytic changes of the calcaneus. Well-formed enthesophyte at the insertion of the plantar fascia. Subtalar and midtarsal joints are well aligned. Stable medial column.. Assessment/Plan Progressively symptomatic insertional plantar fasciitis/heel spur syndrome left. Plan: Review of clinical and x-ray findings, differential diagnosis, etiology and contributing/aggravating factors, treatment strategy, rationale and objectives. Rx: Prednisone taper dose. Support strapping left foot 5-7 days. Sizing and fitting of Powerstep orthoses. Achilles tendon/plantar fascial stretching exercises; instructions on appropriate technique and timing. Discussed appropriate supportive footwear. Discourage any barefoot walking; particularly when 1st arising. Procedure: This note was created with the assistance of a speech recognition program. While intending to generate a timely document that accurately reflects the content of the visit, no guarantee can be provided that every grammatical or spelling mistake has been or will be identified or corrected. Thank you for your understanding. Darin Aldana DPM documented in this encounter [facility] 06-21-2024 Instructions Darin Aldana DPM - 06/21/2024 8:45 AM EDT As noted documented in this encounter [facility] 04-25-2024 History of Presen t illness Narrative Associated Problem(s): Abnormal mammogram of right breast Spoke with pt on the phone 04/25/24, reviewing her mammogram from 12/21/22 that stated mass in the right breast requires diagnostic mamm and breast US. She also saw Jessica Lott on 06/16/2023 for well women exam and this was ordered. Pt reports that she did not get this done and that she was not aware of need for this testing We will change her screening mammogram to a bilat diagnostic mamm w US breast documented in this encounter [facility] 04-18-2024 Telephone encount er Note Pt believes she did a cologuard test in 2023, I have no results, can we contact Cologuard to see if there is a result that maybe we did not get it [place] [facility] 04-18-2024 Miscellaneous Notes Formattin g of this note might be different from the original. Pt believes she did a cologuard test in 2023, I have no results, can we contact Cologuard to see if there is a result that maybe we did not get it [place] documented in this encounter [facility] 04-18-2024 History of Presen t illness Narrative Associated Problem(s): Subacute pansinusitis Sxs for only 3 days, no colored nasal secretions, OTC meds are helping At this point lets hold on atb, likely viral Fluids, rest If nasal pressure and develops colored nasal secretions contact office Associated Problem(s): Ovarian cancer in remission Continues with Fermentation Scientist if [place] Associated Problem(s): Obesity (BMI 30-39.9) Discussed with patient their BMI (actual, verses recommended). We have also discussed lifestyle modifications: attempts to perform physical activity as chronic conditions allow, also to monitor dietary intake: increasing protein/fruits/veggies and lowering carb intake (unless contraindicated). Limit sodas, juices, and sugary drinks. Pt started having a sinus issues on Tuesday. She has stuffy nose/runny nose, sneezing, plugged ears, no sore throat, a lot of post nasal drip, sinus pressure. Images from the original note were not included. Aria Fernandez is a 48 y.o. female presents with chief complaint of No chief complaint on file. HPI: Diet: variety, caffeine: minimal Activity: walking Mental Health Concerns: no concerns Falls in the last year: none Any hearing problems: none Any Vision problems: glasses, yearly eye exams Any Hospitalizations in the last year: none Specialist: dentist: looking for one, [facility] [place] Concerns: sinus infection Sinus Problem This is a new problem. The current episode started in the past 7 days. The problem has been gradually improving since onset. There has been no fever. The pain is moderate. Associated symptoms include congestion, ear pain, sinus pressure and sneezing. Pertinent negatives include no chills, coughing, diaphoresis, headaches, hoarse voice, neck pain, shortness of breath or sore throat. Treatments tried: OTC meds. The treatment provided moderate relief. SUBJECTIVE: MEDICATIONS: No current outpatient medications ALLERGIES: No Known Allergies REVIEW OF SYMPTOMS: Review of Systems Constitutional: Negative for appetite change, chills, diaphoresis and fever. HENT: Positive for congestion, ear pain, sinus pressure and sneezing. Negative for hoarse voice and sore throat. Eyes: Negative for pain, discharge, redness and visual disturbance. Respiratory: Negative for cough, shortness of breath and wheezing. Cardiovascular: Negative for chest pain, palpitations and leg swelling. Gastrointestinal: Negative for abdominal pain, blood in stool, constipation, diarrhea, nausea and vomiting. Genitourinary: Negative for difficulty urinating, dysuria and frequency. Musculoskeletal: Negative for arthralgias, back pain, joint swelling, myalgias and neck pain. Skin: Negative for rash and wound. Neurological: Negative for dizziness, tremors, seizures, syncope and headaches. Psychiatric/Behavioral: Negative for behavioral problems, self-injury and suicidal ideas. The patient is not nervous/anxious. Hematological: Does not bruise/bleed easily. Endocrine: Negative for polydipsia, polyphagia and polyuria. Allergic/Immunologic: Negative for environmental allergies and food allergies. PAST MEDICAL HISTORY Past Medical History: Diagnosis Date Acute cystitis 04/08/2023 At low risk for fall BMI 29.0-29.9,adult Encounter for gynecological examination (general) (routine) without abnormal findings History of hysterectomy Ovarian cancer in remission Past Surgical History: Procedure Laterality Date DILATION AND CURETTAGE Miscarriage HYSTERECTOMY Complete - due to cancer OTHER SURGICAL HISTORY 08/08/2021 Laser Surgery TUBAL LIGATION family history includes Asthma in her mother and sister; Atrial fibrillation in her mother; Cancer in her maternal grandfather, maternal grandmother, mother, and paternal grandmother; Diabetes in her mother; Emphysema in her mother. OBJECTIVE: Visit Vitals BP 124/78 (BP Location: Left arm, Patient Position: Sitting, BP Cuff Size: Adult long) Pulse 97 Temp 98.5 F (Temporal) Resp 18 Ht 5' 8 Wt 197 lb 12.8 oz SpO2 99% BMI 30.08 kg/m Smoking Status Never BSA 2.07 m Physical Exam Vitals and nursing note reviewed. Constitutional: General: She is not in acute distress. Appearance: Normal appearance. HENT: Head: Normocephalic and atraumatic. Right Ear: External ear normal. Left Ear: External ear normal. Nose: Nose normal. Mouth/Throat: Mouth: Mucous membranes are moist. Eyes: Extraocular Movements: Extraocular movements intact. Conjunctiva/sclera: Conjunctivae normal. Cardiovascular: Rate and Rhythm: Normal rate and regular rhythm. Pulses: Normal pulses. Heart sounds: Normal heart sounds. Pulmonary: Effort: Pulmonary effort is normal. Breath sounds: Normal breath sounds. Abdominal: General: Bowel sounds are normal. There is no distension. Palpations: Abdomen is soft. There is no mass. Tenderness: There is no abdominal tenderness. Musculoskeletal: General: Normal range of motion. Cervical back: Normal range of motion and neck supple. Skin: General: Skin is warm and dry. Capillary Refill: Capillary refill takes 2 to 3 seconds. Findings: No rash. Neurological: General: No focal deficit present. Mental Status: She is alert and oriented to person, place, and time. Psychiatric: Mood and Affect: Mood normal. Behavior: Behavior normal. Thought Content: Thought content normal. Judgment: Judgment normal. ASSESSMENT AND PLAN: Follow up in about 1 year (around 04/18/2025) for Recheck. 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 Options are Colonoscopy: direct visualization, every 10 years (unless indicated more frequently), risks and benefits were discussed Cologuard: every 3 years, risks and benefits were discussed , contraindications were discussed (family hx of colon cancer, colon polyps) Patient has elected to: Obesity (BMI 30-39.9) Discussed with patient their BMI (actual, verses recommended). We have also discussed lifestyle modifications: attempts to perform physical activity as chronic conditions allow, also to monitor dietary intake: increasing protein/fruits/veggies and lowering carb intake (unless contraindicated). Limit sodas, juices, and sugary drinks. Encounter for wellness examination - Primary Reviewed Ht/Wt/BMI Recommend eye exam yearly Recommend dental exams twice a year Balance work/leisure activities Exercises is recommended most days of the week (appropriate as chronic conditions allow) Follow up yearly and prn Relevant Orders CBC and differential Comprehensive metabolic panel Lipid panel TSH Urinalysis with reflex microscopic (clean catch) Encounter for screening mammogram for malignant neoplasm of breast Relevant Orders Bilateral screening mammogram Subacute pansinusitis Sxs for only 3 days, no colored nasal secretions, OTC meds are helping At this point lets hold on atb, likely viral Fluids, rest If nasal pressure and develops colored nasal secretions contact office Associated Problem(s): Colon cancer screening Colon cancer screening options were discussed with patient, as well as why colon cancer screening is indicated. Options are Colonoscopy: direct visualization, every 10 years (unless indicated more frequently), risks and benefits were discussed Cologuard: every 3 years, risks and benefits were discussed , contraindications were discussed (family hx of colon cancer, colon polyps) Patient has elected to: Associated Problem(s): Encounter for wellness examination Reviewed Ht/Wt/BMI Recommend eye exam yearly Recommend dental exams twice a year Balance work/leisure activities Exercises is recommended most days of the week (appropriate as chronic conditions allow) Follow up yearly and prn documented in this encounter [facility] 04-18-2024 Instructions Jessica Schmidt NP - 04/18/2024 3:20 PM EST Get labs Will fax order for mammogram to [facility] [place], they should call you, if no call in 10 days, call them: [phone], ext [phone] I will check on Cologuard test and let you know documented in this encounter [facility] 11-30-2023 History of Presen t illness Narrative Associated Problem(s): Acute pain of right knee Suspect more overuse, diff meniscus OTC NSAID as directed WITH FOOD for 2 weeks Fu in if not better Pt is having rt knee pain- pt states pain started on the 11/09 she does not recall anything happening. She uses bi-freeze, ice, heat, and elevation, she states that walking it out has helped some too. Pt states she had some swelling from walking the [employer] on the but no bruising. Images from the original note were not included. Aria Fernandez is a 48 y.o. female presents with chief complaint of No chief complaint on file. HPI: Knee Pain The incident occurred more than 1 week ago. There was no injury mechanism. The pain is present in the right knee. The quality of the pain is described as aching. The pain is moderate. Pertinent negatives include no inability to bear weight, loss of motion or loss of sensation. She reports no foreign bodies present. The symptoms are aggravated by movement and weight bearing. She has tried NSAIDs for the symptoms. The treatment provided moderate relief. SUBJECTIVE: MEDICATIONS: No current outpatient medications ALLERGIES: No Known Allergies REVIEW OF SYMPTOMS: Review of Systems Constitutional: Negative for appetite change, chills and fever. HENT: Negative for congestion, ear pain and sore throat. Eyes: Negative for pain, discharge, redness and visual disturbance. Respiratory: Negative for cough, shortness of breath and wheezing. Cardiovascular: Negative for chest pain, palpitations and leg swelling. Gastrointestinal: Negative for abdominal pain, blood in stool, constipation, diarrhea, nausea and vomiting. Genitourinary: Negative for difficulty urinating, dysuria and frequency. Musculoskeletal: Positive for arthralgias. Negative for back pain, joint swelling and myalgias. Skin: Negative for rash and wound. Neurological: Negative for dizziness, tremors, seizures, syncope and headaches. Psychiatric/Behavioral: Negative for behavioral problems, self-injury and suicidal ideas. The patient is not nervous/anxious. Hematological: Does not bruise/bleed easily. Endocrine: Negative for polydipsia, polyphagia and polyuria. Allergic/Immunologic: Negative for environmental allergies and food allergies. PAST MEDICAL HISTORY Past Medical History: Diagnosis Date Acute cystitis 04/08/2023 At low risk for fall BMI 29.0-29.9,adult Encounter for gynecological examination (general) (routine) without abnormal findings History of hysterectomy Ovarian cancer in remission Past Surgical History: Procedure Laterality Date DILATION AND CURETTAGE Miscarriage HYSTERECTOMY Complete - due to cancer OTHER SURGICAL HISTORY 08/08/2021 Laser Surgery TUBAL LIGATION family history includes Asthma in her mother and sister; Atrial fibrillation in her mother; Cancer in her maternal grandfather, maternal grandmother, mother, and paternal grandmother; Diabetes in her mother; Emphysema in her mother. OBJECTIVE: Visit Vitals BP 118/86 (BP Location: Left arm, Patient Position: Sitting, BP Cuff Size: Adult long) Pulse 82 Temp 98.4 F (Temporal) Wt 197 lb 6.4 oz SpO2 100% BMI 30.01 kg/m Smoking Status Never BSA 2.07 m Physical Exam Vitals and nursing note reviewed. Constitutional: General: She is not in acute distress. Appearance: Normal appearance. HENT: Head: Normocephalic and atraumatic. Right Ear: External ear normal. Left Ear: External ear normal. Nose: Nose normal. Mouth/Throat: Mouth: Mucous membranes are moist. Eyes: Extraocular Movements: Extraocular movements intact. Conjunctiva/sclera: Conjunctivae normal. Cardiovascular: Rate and Rhythm: Normal rate and regular rhythm. Pulses: Normal pulses. Heart sounds: Normal heart sounds. Pulmonary: Effort: Pulmonary effort is normal. Breath sounds: Normal breath sounds. Abdominal: General: Bowel sounds are normal. There is no distension. Palpations: Abdomen is soft. There is no mass. Tenderness: There is no abdominal tenderness. Musculoskeletal: General: Normal range of motion. Cervical back: Normal range of motion and neck supple. Right lower leg: No edema. Left lower leg: No edema. Comments: Right knee: no swelling/gross deformity No laxity, no pain with valgas/varus stress +creptus with flex/ext Calf soft Skin: General: Skin is warm and dry. Capillary Refill: Capillary refill takes 2 to 3 seconds. Findings: No rash. Neurological: General: No focal deficit present. Mental Status: She is alert and oriented to person, place, and time. Psychiatric: Mood and Affect: Mood normal. Behavior: Behavior normal. Thought Content: Thought content normal. Judgment: Judgment normal. ASSESSMENT AND PLAN: No follow-ups on file. Problem List Items Addressed This Visit Obesity (BMI 30-39.9) - Primary Acute pain of right knee Suspect more overuse, diff meniscus OTC NSAID as directed WITH FOOD for 2 weeks Fu in if not better documented in this encounter [facility] 05-17-2023 History of Presen t illness Narrative Associated Problem(s): Chest pain [facility] for evaluation, records reviewed Associated Problem(s): Gastroesophageal reflux disease without esophagitis Suspect pain is related to GERD, does have improvement with Pepcid, but not complete Stop pepcid Trial Omeprazole Fu in 4 weeks Freq small meals, avoid caffiene, and ETOH If not better consider gallbladder work up Went to er due to chest discomfort, hospital found nothing. Pt is describing burping and feeling better very gassy in the oesophagus, takes pepsid before she eats and does help Images from the original note were not included. Aria Fernandez is a 47 y.o. female presents with chief complaint of No chief complaint on file. HPI: Chest Pain This is a new problem. The current episode started 1 to 4 weeks ago. The onset quality is sudden. The problem occurs 2 to 4 times per day. The problem has been waxing and waning. Pain location: left ant chest/sternal area. The pain is mild. The quality of the pain is described as burning. The pain does not radiate. Pertinent negatives include no abdominal pain, back pain, cough, dizziness, fever, headaches, hemoptysis, nausea, orthopnea, palpitations, PND, shortness of breath or vomiting. Associated symptoms comments: Belching, gassy. The pain is aggravated by food (red foods). She has tried antacids for the symptoms. The treatment provided moderate relief. There are no known risk factors. Pertinent negatives for past medical history include no seizures. SUBJECTIVE: MEDICATIONS: Current Outpatient Medications Medication Instructions azithromycin (Zithromax) 250 MG tablet 2 pills day #1, 1 pill day #2-#5 ALLERGIES: No Known Allergies REVIEW OF SYMPTOMS: Review of Systems Constitutional: Negative for appetite change, chills and fever. HENT: Negative for congestion, ear pain and sore throat. Eyes: Negative for pain, discharge, redness and visual disturbance. Respiratory: Negative for cough, hemoptysis, shortness of breath and wheezing. Cardiovascular: Positive for chest pain. Negative for palpitations, orthopnea, leg swelling and PND. Gastrointestinal: Negative for abdominal pain, blood in stool, constipation, diarrhea, nausea and vomiting. Genitourinary: Negative for difficulty urinating, dysuria and frequency. Musculoskeletal: Negative for arthralgias, back pain, joint swelling and myalgias. Skin: Negative for rash and wound. Neurological: Negative for dizziness, tremors, seizures, syncope and headaches. Psychiatric/Behavioral: Negative for behavioral problems, self-injury and suicidal ideas. The patient is not nervous/anxious. Hematological: Does not bruise/bleed easily. Endocrine: Negative for polydipsia, polyphagia and polyuria. Allergic/Immunologic: Negative for environmental allergies and food allergies. PAST MEDICAL HISTORY Past Medical History: Diagnosis Date Acute cystitis 04/08/2023 At low risk for fall BMI 29.0-29.9,adult Encounter for gynecological examination (general) (routine) without abnormal findings History of hysterectomy Ovarian cancer in remission Past Surgical History: Procedure Laterality Date DILATION AND CURETTAGE Miscarriage HYSTERECTOMY Complete - due to cancer OTHER SURGICAL HISTORY 08/08/2021 Laser Surgery TUBAL LIGATION family history includes Asthma in her mother and sister; Atrial fibrillation in her mother; Cancer in her maternal grandfather, maternal grandmother, mother, and paternal grandmother; Diabetes in her mother; Emphysema in her mother. OBJECTIVE: Visit Vitals BP 138/88 (BP Location: Left arm, Patient Position: Sitting, BP Cuff Size: Large adult long) Pulse 77 Temp 97.8 F (Temporal) Resp 18 Ht 5' 8 Wt 203 lb 3.2 oz SpO2 98% BMI 30.90 kg/m Smoking Status Never BSA 2.1 m Physical Exam Vitals reviewed. Constitutional: General: She is not in acute distress. Appearance: Normal appearance. HENT: Head: Normocephalic and atraumatic. Right Ear: External ear normal. Left Ear: External ear normal. Nose: Nose normal. Mouth/Throat: Mouth: Mucous membranes are moist. Eyes: Extraocular Movements: Extraocular movements intact. Conjunctiva/sclera: Conjunctivae normal. Cardiovascular: Rate and Rhythm: Normal rate and regular rhythm. Pulses: Normal pulses. Heart sounds: Normal heart sounds. Pulmonary: Effort: Pulmonary effort is normal. Breath sounds: Normal breath sounds. Abdominal: General: Bowel sounds are normal. There is no distension. Palpations: Abdomen is soft. There is no mass. Tenderness: There is no abdominal tenderness. Musculoskeletal: General: Normal range of motion. Cervical back: Normal range of motion and neck supple. Skin: General: Skin is warm and dry. Capillary Refill: Capillary refill takes 2 to 3 seconds. Findings: No rash. Neurological: General: No focal deficit present. Mental Status: She is alert and oriented to person, place, and time. Psychiatric: Mood and Affect: Mood normal. Behavior: Behavior normal. Thought Content: Thought content normal. Judgment: Judgment normal. ASSESSMENT AND PLAN: No follow-ups on file. documented in this encounter [facility] 03-23-2023 Evaluation note Encounter Date Diagnosis Assessment Notes Mar, Dysuria (ICD-10 - R30.0) Mar, Acute cystitis with hematuria (ICD-10 - N30.01) Drink plenty fluids, get plenty of rest. Take the Macrobid and Pyridium as prescribed until gone. Take Tylenol or Motrin for aches pains and fevers. Follow-up with your family physician if no improvement in 2 to 3 days [facility] Other 09-18-2023 History of Present illness Narrative* Katt Galindo RN - 12/27/2022 4:27 PM EDT Breast imaging reviewed by radiologist. Impression/Recommendation: Mass in the right breast requires additional evaluation. A diagnostic right breast ultrasound exam ([id number]) is recommended. Orders placed per radiologist recommendations. Patient will be contacted to schedule appropriate appointments. Katt Galindo RN-, GRAIN INSPECTOR, PhD [facility] [employer] Plan Demonstrator documented in this [id number] History general Narrative - Reported* Type Description Date Surgical History hysterectomy 08/2013 [facility] Other Evaluation note* Diagnosis Abnormal finding on breast imaging- Primary Other (abnormal) findings on radiological examination of breast [facility] Work Phone: [employer] noteNo InformationNortExcela [facility] [employer] Other evaluation note* Diagnosis Chest pain, unspecified type- Primary Gastroesophageal reflux disease without esophagitis Esophageal reflux Obesity (BMI 30-39.9) documented in this encounter [facility]* Diagnosis Acute pain of right knee- Primary Obesity (BMI 30-39.9) documented in this encounter [facility]* Diagnosis Acute non-recurrent maxillary sinusitis- Primary BMI 29.0-29.9,adult Participant in health and wellness plan Colon cancer screening Special screening for malignant neoplasms, colon Chest pain, unspecified type- Primary Gastroesophageal reflux disease without esophagitis Esophageal reflux Obesity (BMI 30-39.9) Gastroesophageal reflux disease without esophagitis- Primary Esophageal reflux Over weight Overweight Gastroesophageal reflux disease without esophagitis- Primary Esophageal reflux Obesity (BMI 30-39.9) Colon cancer screening Special screening for malignant neoplasms, colon Acute pain of right knee- Primary Obesity (BMI 30-39.9) Encounter for wellness examination- Primary Obesity (BMI 30-39.9) Colon cancer screening Special screening for malignant neoplasms, colon Encounter for screening mammogram for malignant neoplasm of breast Ovarian cancer in remission Subacute pansinusitis documented in this encounter [facility]* Diagnosis Acute non-recurrent maxillary sinusitis- Primary BMI 29.0-29.9,adult Participant in [facility] Colon cancer screening Special screening for malignant neoplasms, colon Chest pain, unspecified type- Primary Gastroesophageal reflux disease without esophagitis Esophageal reflux Obesity (BMI 30-39.9) Gastroesophageal reflux disease without esophagitis- Primary Esophageal reflux Over weight Overweight Gastroesophageal reflux disease without esophagitis- Primary Esophageal reflux Obesity (BMI 30-39.9) Colon cancer screening Special screening for malignant neoplasms, colon Acute pain of right knee- Primary Obesity (BMI 30-39.9) Encounter for wellness examination- Primary Obesity (BMI 30-39.9) Colon cancer screening Special screening for malignant neoplasms, colon Encounter for screening mammogram for malignant neoplasm of breast Ovarian cancer in remission Subacute pansinusitis Colon cancer screening- Primary Special screening for malignant neoplasms, colon documented in this encounter [facility]* Diagnosis Acute non-recurrent maxillary sinusitis- Primary BMI 29.0-29.9,adult Participant in [facility] Colon cancer screening Special screening for malignant neoplasms, colon Chest pain, unspecified type- Primary Gastroesophageal reflux disease without esophagitis Esophageal reflux Obesity (BMI 30-39.9) Gastroesophageal reflux disease without esophagitis- Primary Esophageal reflux Over weight Overweight Gastroesophageal reflux disease without esophagitis- Primary Esophageal reflux Obesity (BMI 30-39.9) Colon cancer screening Special screening for malignant neoplasms, colon Acute pain of right knee- Primary Obesity (BMI 30-39.9) Encounter for wellness examination- Primary Obesity (BMI 30-39.9) Colon cancer screening Special screening for malignant neoplasms, colon Encounter for screening mammogram for malignant neoplasm of breast Ovarian cancer in remission Subacute pansinusitis Abnormal mammogram of right breast- Primary documented in this encounter [facility]* Diagnosis Acute non-recurrent maxillary sinusitis- Primary BMI 29.0-29.9,adult Participant in [facility] Colon cancer screening Special screening for malignant neoplasms, colon Chest pain, unspecified type- Primary Gastroesophageal reflux disease without esophagitis Esophageal reflux Obesity (BMI 30-39.9) Gastroesophageal reflux disease without esophagitis- Primary Esophageal reflux Over weight Overweight Gastroesophageal reflux disease without esophagitis- Primary Esophageal reflux Obesity (BMI 30-39.9) Colon cancer screening Special screening for malignant neoplasms, colon Acute pain of right knee- Primary Obesity (BMI 30-39.9) Encounter for wellness examination- Primary Obesity (BMI 30-39.9) Colon cancer screening Special screening for malignant neoplasms, colon Encounter for screening mammogram for malignant neoplasm of breast Ovarian cancer in remission Subacute pansinusitis Abnormal mammogram of right breast- Primary Subacute pansinusitis- Primary documented in this encounter [facility]* Diagnosis Acute non-recurrent maxillary sinusitis- Primary BMI 29.0-29.9,adult Participant in health and wellness plan Colon cancer screening Special screening for malignant neoplasms, colon Chest pain, unspecified type- Primary Gastroesophageal reflux disease without esophagitis Esophageal reflux Obesity (BMI 30-39.9) Gastroesophageal reflux disease without esophagitis- Primary Esophageal reflux Over weight Overweight Gastroesophageal reflux disease without esophagitis- Primary Esophageal reflux Obesity (BMI 30-39.9) Colon cancer screening Special screening for malignant neoplasms, colon Acute pain of right knee- Primary Obesity (BMI 30-39.9) Encounter for wellness examination- Primary Obesity (BMI 30-39.9) Colon cancer screening Special screening for malignant neoplasms, colon Encounter for screening mammogram for malignant neoplasm of breast Ovarian cancer in remission Subacute pansinusitis Abnormal mammogram of right breast- Primary Plantar fasciitis, left- Primary Inflammatory heel pain, left Calcaneal spur, left Gastrocnemius equinus, left Difficulty walking Difficulty in walking documented in this encounter [facility] Summary Purpose Family History No Family History Records FoundNo Family History Records FoundNo Family History Records FoundNo Family History Records FoundNo Family History Records Found Advance Directives No Advanced Directives Records FoundNo Advanced Directives Records FoundNo Advanced Directives Records FoundNo Advanced Directives Records FoundNo Advanced Directives Records Found Reason for Referral Specialty Diagnoses / Procedures Referred By Contac t Referred To Contact Radiology Diagnoses Abnormal finding on breast imaging Procedures US BREAST/AXILLA Radha Handy DO [address] [place] [address] [facility] M[facility] [address] [place] [address] Referral ID Status Reason Start Date Expiration Date V isits Requested Visits Authorized [id number] Authorized 12/27/2022 12/27/2023 1 1 Additional Source Comments INFORMATION SOURCE (unrecogn ized section and content) DATE CREATED AUTHOR 09/22/2021 [facility] DATE CREATED AUTHOR AUTHOR'S ORGANIZ ATION 12/28/2022 [facility] DATE CREATED AUTHOR AUTHOR'S ORGANIZ ATION 03/31/2023 [facility] DATE CREATED AUTHOR AUTHOR'S ORGANIZ ATION 06/18/2023 [facility] DATE CREATED AUTHOR AUTHOR'S ORGANIZ ATION 04/24/2024 [facility] EPIC REASON FOR VISIT (unrecogniz ed section and content) Reason Comments Foot Pain Aria Fernandez 48 yo New Patient presents with Left heel pain, started 3 weeks ago, NKI. Motrin as need. Patient wears OTC inserts. Patient works at [employer] and will be starting 9 hour days. SS 9 Care Teams (unrecognized sec tion and content) Team Status: Inactive Member Role Status Dates Maribell Knutson NP-C Attending Provider Active [employer] Executive Producer Relationship Specialty Start Date End Date Radha Montague DO [address] [place], [place] [address] [place] [id number] Physician Radiology 01/15/23 [employer] Executive Producer Relationship Specialty Start Date End Date Enzo Borrero MD [address] [place] [address] PCP - General Family Medicine 05/09/23 Jessica Schmidt NP [address] [place] [address] Nurse Practitioner Family Medicine 04/01/23 [employer] Executive Producer Relationship Specialty Start Date End Date Enzo Borrero MD [address] [place] [address] PCP - General Family Medicine 05/09/23 Jessica Schmidt NP [address] [place] [id number] Nurse Practitioner Family Medicine 04/01/23 [employer] Executive Producer Relationship Specialty Start Date End Date Enzo Borrero MD [address] [place] [phone] PCP - General Family Medicine 05/09/23 Jessica Schmidt NP [address] [place] [phone] Nurse Practitioner Family Medicine 04/01/23 [employer] Executive Producer Relationship Specialty Start Date End Date Enzo Borrero MD [address] [place] [id number] PCP - General Family Medicine 05/09/23 Jessica Schmidt NP [address] [place] [phone] Nurse Practitioner Family Medicine 04/01/23 [employer] Executive Producer Relationship Specialty Start Date End Date Enzo Borrero MD [address] [place] [phone] PCP - General Family Medicine 05/09/23 Jessica Schmidt NP [address] [place] [phone] Nurse Practitioner Family Medicine 04/01/23 [employer] Executive Producer Relationship Specialty Start Date End Date Enzo Borrero MD [address] [place] [phone] PCP - General Family Medicine 05/09/23 Jessica Schmidt NP [address] [place] [address] Nurse Practitioner Family Medicine 04/01/23 [employer] Executive Producer Relationship Specialty Start Date End Date Enzo Borrero MD [address] [place] [phone] PCP - General Family Medicine 05/09/23 Jessica Schmidt NP [address] [place] [phone] Nurse Practitioner Family Medicine 04/01/23 [employer] Executive Producer Relationship Specialty Start Date End Date Enzo Borrero MD [address] [place] [phone] PCP - General Family Medicine 05/09/23 Jessica Schmidt NP [address] [place] [phone] Nurse Practitioner Family Medicine 04/01/23 [employer] Executive Producer Relationship Specialty Start Date End Date Enzo Borrero MD [address] [place] [phone] PCP - General Family Medicine 05/09/23 Jessica Schmidt NP [address] [place] [phone] Nurse Practitioner Family Medicine 04/01/23 [employer] Executive Producer Relationship Specialty Start Date End Date Enzo Borrero MD [address] [place] [phone] PCP - General Family Medicine 05/09/23 Jessica Schmidt NP [address] [place] [address] Nurse Practitioner Family Medicine 04/01/23 Goals (unrecognized section and content) Goals may [...] BE BASED ON THE PRIMARY CLINICAL RECORDS. [employer] [facility]. provides no warranty or guarantee of the accuracy or completeness of information in this document.
[2024-06-21 12:33] LABS: Basophils Absolute Auto 0.1 10^3/uL (0.0-0.1); Basophils Percent Auto 0.7 % (0.2-2.0); Eosinophils Absolute Auto 0.3 10^3/uL (0.0-0.7); Eosinophils Percent Auto 3.4 % (0.9-7.0); Hematocrit 40.3 % (36.0-48.0); Hemoglobin 13.5 g/dL (12.0-16.0); Immature Granulocytes Abs Auto 0.02 10^3/uL (0.00-0.03); Immature Granulocytes Pct Auto 0.2 % (0.0-0.5); Lymphocytes Absolute Auto 3.2 10^3/uL (1.2-3.8); Lymphocytes Percent Auto 31.7 % (20.5-60.0); Mean Corpuscular HGB Conc 33.5 g/dL (29.9-35.2); Mean Corpuscular Hemoglobin 31.6 pg (26.7-34.0); Mean Corpuscular Volume 94.4 fL (81.0-99.0); Mean Platelet Volume 10.1 fL (9.5-13.5); Monocytes Absolute Auto 0.7 10^3/uL (0.3-0.8); Monocytes Percent Auto 6.5 % (1.7-12.0); Neutrophils Absolute Auto 5.7 10^3/uL (1.4-6.5); Neutrophils Percent Auto 57.5 % (43.0-75.0); Platelet Count 294 10^3/uL (150-450); Red Blood Count 4.27 10^6/uL (4.20-5.40); Red Cell Distribution Width 12.1 % (11.0-15.0)
[2024-06-21 12:55] LABS: Bilirubin Urine NEGATIVE (NEGATIVE); Blood Urine TRACE-I (NEGATIVE); Clarity Urine CLEAR (CLEAR); Color Urine LT. YELLOW (YELLOW); Glucose Urine UA NEGATIVE (NEGATIVE); Ketones Urine NEGATIVE (NEGATIVE); Leukocyte Esterase Urine NEGATIVE (NEGATIVE); Nitrite Urine NEGATIVE (NEGATIVE); Protein Urine NEGATIVE (NEG/TRACE); Specific Gravity Urine 1.015 (1.005-1.025); pH Urine 6.5 (5.0-9.0)
[2024-06-21 12:57] LABS: Urine Microscopic Indicated YES
[2024-06-21 12:57] LABS: Alanine Aminotransferase 19 U/L (14-59); Albumin Globulin Ratio 1.1; Alkaline Phosphatase 53 U/L (46-116); Anion Gap 14.2; Aspartate Amino Transferase 13 U/L (15-37); BUN Creatinine Ratio 19.8; Bilirubin Total 0.3 mg/dL (0.2-1.0); Calcium 9.1 mg/dL (8.5-10.1); Carbon Dioxide 25.9 mmol/L (21.0-32.0); Chloride 104 mmol/L (98-107); Chol HDL Ratio 2.4; Cholesterol 174 mg/dL (<=200); Estimated GFR (African America >60 (>=60 mL/min/1.73m^2); Estimated GFR (Non-African Ame >60 (>=60 mL/min/1.73m^2); Globulin 3.5 g/dL; Glucose 94 mg/dL (74-106); HDL Cholesterol 72 mg/dL (40-60); Potassium 4.1 mmol/L (3.5-5.1); Sodium 140 mmol/L (136-145); Thyroid Stimulating Hormone 1.094 uIU/mL (0.358-3.740); Total Protein 7.5 g/dL (6.4-8.2); Triglycerides 57 mg/dL (<=150); VLDL CHOLESTEROL 11.4 mg/dL
[2024-06-21 13:22] LABS: Bacteria Urine TRACE #/HPF (NONE SEEN); Cast Seen? NONE SEEN #/LPF (NONE SEEN); Crystals Seen? None Seen #/HPF (None Seen); Mucus Urine NONE SEEN (NONE SEEN); RBC Urine 0-2 #/HPF (0-2); Squamous Epithelial Cell Urine MODERATE #/LPF (NONE/RARE); WBC Urine NONE SEEN #/HPF (NONE SEEN)
== END 2024-06-21 11:49 | disposition home or self-care (01) ==
LOC: LAB 11:49
PROVIDERS: PCP Nurse Practitioner; Visit Provider Nurse Practitioner
DX: Z00.00 Encounter for general adult medical examination without abnormal findings (principal); Z12.31 Encounter for screening mammogram for malignant neoplasm of breast
CPT/HCPCS: 36415; 77063; 77067; 80053; 80061; 81001; 84443; 85025